=== PATIENT | female | born 1940 | race Caucasian/White ===

== ENCOUNTER → 2016-11-13 | Outpatient (CLI) | payer OTHER, MEDICARE | LOC: FIMAGING 13:30 | PROVIDERS: ATTEND Internal Medicine | DX: Z47.89 Encounter for other orthopedic aftercare (principal); Z98.1 Arthrodesis status; M43.17 Spondylolisthesis, lumbosacral region; M51.36 Other intervertebral disc degeneration, lumbar region ==

== ENCOUNTER 2016-12-09 11:55 | Day surgery (SDC) | payer OTHER, MEDICARE ==
[2016-12-09] MEDS ORDERED: fentaNYL 100 MCG/2 ML INJ ONE (13:20)
[2016-12-09] MEDS ORDERED: MIDAZOLAM 2 MG/2 ML VIAL ONE (13:21)
[2016-12-09] MEDS ORDERED: BUPIVACAINE 0.5% 30 ML SDV ONE (14:37)
[2016-12-09] MEDS ORDERED: DEPO METHYLPREDNISOLONE 80 MG/ML SDV ONE (14:37)
[2016-12-09] MEDS ORDERED: IOPAMIDOL (ISOVUE-M 300) 15 ML VIAL ONE (14:37)
== END 2016-12-09 15:32 | disposition home health service (06) ==
LOC: FIMAGING 11:55
PROVIDERS: ATTEND Physician Assistant
PROC: 3E0S3BZ Introduction of Anesthetic Agent into Epidural Space, Percutaneous Approach (ICD-10-PCS; principal; 2016-12-09 14:42)
PROC: 3E0S33Z Introduction of Anti-inflammatory into Epidural Space, Percutaneous Approach (ICD-10-PCS; principal; 2016-12-09 14:42)
DX: M54.5 Low back pain (principal); M12.88 Other specific arthropathies, not elsewhere classified, other specified site
CPT/HCPCS: J1040; J2250; J3010; Q9967

== ENCOUNTER 2017-02-27 14:35 | Emergency (ER) | payer OTHER, MEDICARE ==
[2017-02-27 14:59] VITALS: BP 156/82; PULSE 90; RESP 16; TEMP 98.4; O2SAT 95
== END 2017-02-27 15:53 | disposition left against medical advice (07) ==
DX: Z53.21 Procedure and treatment not carried out due to patient leaving prior to being seen by health care provider (principal)

== ENCOUNTER → 2017-03-03 | Outpatient (CLI) | payer OTHER, MEDICARE | LOC: BMCIMAGING 14:52 | PROVIDERS: ATTEND Physical Medicine & Rehabilitation | DX: Z13.820 Encounter for screening for osteoporosis (principal); M85.80 Other specified disorders of bone density and structure, unspecified site; Z87.81 Personal history of (healed) traumatic fracture ==

== ENCOUNTER 2017-04-08 10:50 | Observation (INO) | payer OTHER, MEDICARE ==
--- NOTE | 2017-04-08 11:39 | CPEKG ---
Heart Rate: 101 RR Interval: 594 P-R Interval: 144 QRSD Interval: 126 QT Interval: 392 QTC Interval: 509 P [place]: 73 QRS [place]: -50 T Wave [place]: 110 EKG Severity - ABNORMAL ECG - EKG Impression: SINUS TACHYCARDIA EKG Impression: RIGHT ATRIAL ABNORMALITY EKG Impression: LEFT BUNDLE BRANCH BLOCK Electronically Signed By: Rivas Morton 08-Apr-2017 15:54:19
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
[2017-04-08] MEDS ORDERED: NS 1,000 ML IV ONE (12:08)
[2017-04-08] MEDS ORDERED: ONDANSETRON 4 MG/2 ML VIAL IVP ONE (12:08)
[2017-04-08 12:23] LABS: OCCULT BLOOD FECES NEGATIVE (NEGATIVE)
[2017-04-08 12:27] LABS: COLOR YELLOW; LEUKOCYTE ESTERASE,URINE NEGATIVE (NEGATIVE); NITRITE,URINE NEGATIVE (NEGATIVE)
[2017-04-08 12:38] LABS: MUCUS 3+ /lpf (NONE-1+); RBC,URINE NONE SEEN /hpf (0-3)
[2017-04-08 12:46] LABS: % IMMATURE GRANULYOCYTES 0.4 % (0.0-1.1); ABSOLUTE IMMATURE GRANULOCYTES 0.05 10^3/uL (0.00-0.10); ADD DIFF? NO; ADD MORPH? NO; ADD SCAN? NO; ATYPICAL LYMPHOCYTE FLAG 10 (0-99); FRAGMENT RBC FLAG 0 (0-99); LEFT SHIFT FLG 0 (0-99); LIPEMIA HEMOLYSIS FLAG 80 (0-99); MEAN CELL HEMOGLOBIN 31.6 pg (27.9-34.1); MEAN CELL HEMOGLOBIN CONCENTR. 33.3 g/dL (32.4-36.7); MEAN CELL VOLUME 94.7 fL (81.5-99.8); MEAN PLATELET VOLUME 9.4 fL (8.7-11.7); PLATELET CLUMPS FLAG 20 (0-99); PLATELET COUNT 371 10^3/uL (150-400); RED BLOOD CELL COUNT 4.75 10^6/uL (4.18-5.33); RED CELL DISTRIBUTION WIDTH 12.6 % (11.5-15.2)
[2017-04-08 12:46] LABS: ALANINE AMINOTRANSFERASE 71 IU/L (9-52); ALBUMIN 4.5 g/dL (3.5-5.0); ALKALINE PHOSPHATASE 81 IU/L (38-126); ANION GAP 15 mEq/L (8-16); ASPARTATE AMINOTRANSFERASE 41 IU/L (14-46); BILIRUBIN-CONJUGATED 0.3 mg/dL (0.0-0.5); BILIRUBIN-UNCONJUGATED 0.7 mg/dL (0.0-1.1); CALCIUM 10.3 mg/dL (8.5-10.4); CARBON DIOXIDE 22 mEq/l (22-31); CHLORIDE 106 mEq/L (97-110); ETHANOL SERUM < 10 mg/dL (0-10); GLOMERULAR FILTRATION RATE 54; GLUCOSE 93 mg/dL (70-100); POTASSIUM 4.3 mEq/L (3.5-5.2); SODIUM 143 mEq/L (134-144)
[2017-04-08 12:55] LABS: TROPONIN I < 0.012 ng/mL (0.000-0.034)
[2017-04-08] MEDS ORDERED: CEPHALEXIN 500 MG CAP PO ONE (13:34)
[2017-04-08 14:09] VITALS: RESP 16
[2017-04-08] MEDS ORDERED: ZOLPIDEM TARTRATE 5 MG TAB PO PRN (14:35)
[2017-04-08] MEDS ORDERED: ONDANSETRON 4 MG/2 ML VIAL IVP PRN (15:42)
[2017-04-08] MEDS ORDERED: ONDANSETRON DISINTEGRATING 4 MG TAB PO PRN (15:42)
[2017-04-08] MEDS ORDERED: PROMETHAZINE HCL 25 MG/ML INJ IVP PRN (15:42)
[2017-04-08] MEDS ORDERED: NS 1,000 ML IV SCH (15:45)
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
[2017-04-08] MEDS: HYDROCODONE/APAP 10/325 TAB PO PRN (16:25)
[2017-04-08] MEDS ORDERED: GABAPENTIN 300 MG CAP PO SCH (21:00)
[2017-04-08] MEDS: oxyCODONE IR 5 MG TAB PO PRN (21:24)
[2017-04-08] MEDS: ACETAMINOPHEN 325 MG TAB PO PRN (22:49)
[2017-04-09 05:40] LABS: % IMMATURE GRANULYOCYTES 0.3 % (0.0-1.1); ABSOLUTE IMMATURE GRANULOCYTES 0.03 10^3/uL (0.00-0.10); ADD DIFF? NO; ADD MORPH? NO; ADD SCAN? NO; ATYPICAL LYMPHOCYTE FLAG 10 (0-99); FRAGMENT RBC FLAG 0 (0-99); HEMOGLOBIN 12.1 g/dL (12.6-16.3); LEFT SHIFT FLG 0 (0-99); LIPEMIA HEMOLYSIS FLAG 80 (0-99); MEAN CELL HEMOGLOBIN 31.7 pg (27.9-34.1); MEAN CELL HEMOGLOBIN CONCENTR. 32.7 g/dL (32.4-36.7); MEAN CELL VOLUME 96.9 fL (81.5-99.8); MEAN PLATELET VOLUME 9.6 fL (8.7-11.7); PLATELET CLUMPS FLAG 0 (0-99); PLATELET COUNT 326 10^3/uL (150-400); RED BLOOD CELL COUNT 3.82 10^6/uL (4.18-5.33); RED CELL DISTRIBUTION WIDTH 12.9 % (11.5-15.2)
[2017-04-09 05:52] LABS: ANION GAP 4 mEq/L (8-16); CALCIUM 9.3 mg/dL (8.5-10.4); CARBON DIOXIDE 24 mEq/l (22-31); CHLORIDE 110 mEq/L (97-110); GLOMERULAR FILTRATION RATE 54; GLUCOSE 79 mg/dL (70-100); POTASSIUM 4.3 mEq/L (3.5-5.2); SODIUM 138 mEq/L (134-144)
[2017-04-09 07:30] VITALS: BP 138/74; PULSE 67; TEMP 98.4; O2SAT 94
[2017-04-09] MEDS: HYDROCODONE/APAP 10/325 TAB PO PRN ×2 (07:38→13:39)
[2017-04-09] MEDS: oxyCODONE IR 5 MG TAB PO PRN ×2 (08:20→13:12)
[2017-04-09] MEDS ORDERED: ENOXAPARIN 40 MG/0.4 ML SYR SC SCH (09:00)
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
[2017-04-09] MEDS: ACETAMINOPHEN 325 MG TAB PO PRN (11:37)
--- NOTE | 2017-04-09 12:56 | ASMTCMCOM ---
CM Note CM Note Notes: Pt. is a 76-year-old woman admitted for ongoing diarrhea. PT recommending HC. [facility] able to take Pt. Will visit tomorrow per Chelsea at [facility] - PT only service. SWer provided counseling support to Pt. today. Please contact Mel Ann LCSW should Pt. readmit or come to ED - or [phone]. Date Signed: 04/09/2017 12:56 PM Electronically Signed By:Mel Ann LCSW
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
--- NOTE | 2017-04-09 17:42 | ASDISCHSUM ---
Discharge Information Plan Status:Home with No Needs Medically Cleared to Leave: Discharge Date:04/09/2017 01:50 PM CM D/C Disposition:Home, Routine, Self-Care ADT D/C Disposition:Home, Routine, Self-Care Projected Discharge Date:04/09/2017 01:00 PM Transportation at D/C:Family Discharge Delay Reason: Follow-Up Date:04/09/2017 01:00 PM Discharge Slot: Final Diagnosis: Placement Information Referral Type:*Home Health Care Services Referral ID:[id number] Provider Name:[facility] Address [address] [place] [address] Address 2: City:[place] Selection Factors: State:[place] Patient Contact Information Contact Name:LEONID Relationship: Address:[address] City:[place] Alternate Phone: State/Zip Code:[place] [address] Email: Financial Information Financial Class: Primary Plan Desc:MEDICARE INPATIENT Primary Plan Number:[id number] Secondary Plan Desc:[employer]/MDR SUPPLEMENT Secondary Plan Number:[id number] Assessment Information [facility] CM Progress Note CM Note CM Note Notes: Pt. is a 76-year-old woman admitted for ongoing diarrhea. PT recommending HC. [facility] able to take Pt. Will visit tomorrow rosario Tran at [facility] - PT only service. Lisa provided counseling support to Pt. today. Please contact Mel Ann LCSW should Pt. readmit or come to ED - or [phone]. Date Signed: 04/09/2017 12:56 PM Electronically Signed By:Mel Ann LCSW Intervention Information
== END 2017-04-09 13:50 | disposition home or self-care (01) ==
LOC: EDUNIT# → INTOOBSV 13:34 → F3E 14:25
PROVIDERS: ADMIT Internal Medicine; ATTEND Internal Medicine
DX: R19.7 Diarrhea, unspecified (principal); F32.9 Major depressive disorder, single episode, unspecified; Z63.0 Problems in relationship with spouse or partner
CPT/HCPCS: 71010; 93005; 97116; 97162; 97165; G0378; G8978; G8979; G8987; G8988; G8989; 80305; 96374; G0480; J1650; J2405

== ENCOUNTER 2017-05-24 21:23 | Observation (INO) | payer OTHER, MEDICARE ==
--- NOTE | 2017-05-24 21:39 | EDPHY ---
H & P Stated Complaint: Mechanical Fall HPI/ROS: HPI CHIEF COMPLAINT: Found on floor. Confusion HISTORY OF PRESENT ILLNESS: This patient is a 76-year-old female, she presents emergency room by EMS reports that she was found by her on a carpeted ground unknown down time. She appears confused. She has a history of this. She presents emergency room stating that she feels fine however she appears confused on exam. She states she is here for surgical procedure. She denies any pain anywhere. She states she does not know what happened to her. Past Medical History: Alcoholism, diarrhea, pyuria depression, depression with psychotic features, dementia, history of alcohol abuse Past Surgical History: No recent surgery. Social History: Denies daily use drugs alcohol tobacco products. Family History: Noncontributory ROS REVIEW OF SYSTEMS: A comprehensive 10 point review of systems is otherwise negative aside from elements mentioned in the history of present illness. Exam Constitutional appears nontoxic, confused, triage nursing summary reviewed, vital signs reviewed, awake/alert. Eyes normal conjunctivae and sclera, EOMI, PERRLA. HENT no evidence of head trauma. normal inspection, atraumatic, moist mucus membranes, no epistaxis, neck supple/ no meningismus, no raccoon eyes. Respiratory clear to auscultation bilaterally, normal breath sounds, no respiratory distress, no wheezing. Cardiovascular rate normal, regular rhythm, no murmur, no edema, distal pulses normal. Gastrointestinal soft, non-tender, no rebound, no guarding, normal bowel sounds, no distension, no pulsatile mass. Genitourinary no CVA tenderness. Musculoskeletal no midline vertebral tenderness, full range of motion, no calf swelling, no tenderness of extremities, no meningismus, good pulses, neurovascularly intact. Skin pink, warm, & dry, no rash, skin atraumatic. Neurologic awake, alert and oriented x 2, AAOx2, moves all 4 extremities equally, motor intact, sensory intact, CN II-XII intact, normal cerebellar, normal vision, normal speech. Psychiatric normal mood/affect. Heme/Lymph/Immune no lymphadenopathy. Differential Diagnosis: Includes but is not limited to in a particular order acute mental status change, electrolyte disturbance, dehydration, infection, UTI , intracranial bleed Medical Decision Making: Plan for this patient IV establishment blood draw, gentle IV hydration, check UA, CT head without contrast for confusion, EKG. Re-evaluation: EKG interpretation by me on record in [facility] system. Impression time of EKG 2221: Sinus rhythm rate of 77. Left bundle-branch block present. No acute ischemia. When compared to old EKG dated 04/08/[address] head without contrast: Reason for CT head without contrast confusion. Rule out bleed. CT head without contrast called to me by Dr. Matt Resendiz. Negative for anything acute. 2241: Is unclear exactly what is causing this patient's altered mental status at this time. She does appear confused. It is possible drug intoxication that she is not admitting to additionally alcohol abuse that she is not admitting to as she has been denying alcohol in the past but found out to be untrue. Additionally it could be delirium from underlying mental illness or dementia. Her workup here in the emergency room is pretty much unremarkable. She does not have intracranial bleed she does not appear infected. Electrolytes are appropriate. Blood work reassuring vital signs stable. However given how confused she is should be admitted to the hospital service for further evaluation. Most likely delirium. She is nontoxic appearing I do not feel that she needs a lumbar puncture. Source: Patient - Personal History Current Tetanus/Diphtheria Vaccine: Yes Tetanus Vaccine Date: 2010 - Medical/Surgical History Hx Asthma: No Hx Chronic Respiratory Disease: No Hx Diabetes: No Hx Cardiac Disease: No Hx Renal Disease: No Hx Cirrhosis: No Hx Alcoholism: Yes Hx HIV/AIDS: No Hx Splenectomy or Spleen Trauma: No Other PMH: gb removed, knee surgery, spinal fusion. ongoing back pain and chronic pain. etoh abuse. multiple admissions for delusions and confusion - Social History Smoking Status: Never smoked Constitutional: Initial Vital Signs Temperature (C) 36.8 C 05/24/17 21:35 Heart Rate 81 05/24/17 21:35 Respiratory Rate 16 05/24/17 21:35 Blood Pressure 156/87 H 05/24/17 21:35 O2 Sat (%) 92 05/24/17 21:35 O2 Delivery Mode Room Air Allergies/Adverse Reactions: promethazine Allergy (Unknown, Unverified 05/24/17 23:11) Home Medications: Medication Instructions Recorded HYDROcodone/APAP 10325 [[place] 1 each PO Q6HRS PRN 04/08/17 10325 (*)] Gabapentin [Neurontin 300 MG (*)] 600 mg PO HS #0 05/25/17 Medical Decision Making - Data Points Laboratory Results: Laboratory Results 05/24/17 21:00 05/24/17 21:00 Medications Given: Discontinued Medications Hydrocodone Bitart/Acetaminophen ([place] 10/325) 1 tab PO Q6HRS PRN PRN Reason: Pain, Severe Able to Take PO Stop: 06/04/17 05:35 Last Admin: 05/25/17 11:30 Dose: 1 tab Sodium Chloride (Ns) 1,000 mls @ 0 mls/hr IV EDNOW ONE; Wide Open PRN Reason: Protocol Stop: 05/24/17 21:43 Last Admin: 05/24/17 23:10 Dose: 1,000 mls Ondansetron HCl (Zofran) 4 mg IVP Q4HRS PRN PRN Reason: Nausea/Vomiting, Can't Take PO Stop: 11/21/17 05:33 Last Admin: 05/25/17 09:05 Dose: 4 mg Departure - Departure Disposition: [facility] Inpatient Acute Clinical Impression: Altered mental status Qualifiers: Altered mental status type: unspecified Qualified Code(s): R41.82 - Altered mental status, unspecified Condition: Fair
[2017-05-24] MEDS ORDERED: NS 1,000 ML IV ONE (21:42)
[2017-05-24 21:48] LABS: % IMMATURE GRANULYOCYTES 0.6 % (0.0-1.1); ABSOLUTE IMMATURE GRANULOCYTES 0.05 10^3/uL (0.00-0.10); ADD DIFF? NO; ADD MORPH? NO; ADD SCAN? NO; ATYPICAL LYMPHOCYTE FLAG 0 (0-99); FRAGMENT RBC FLAG 0 (0-99); HEMATOCRIT 46.3 % (38.0-47.0); HEMOGLOBIN 15.5 g/dL (12.6-16.3); LEFT SHIFT FLG 0 (0-99); LIPEMIA HEMOLYSIS FLAG 80 (0-99); MEAN CELL HEMOGLOBIN 31.9 pg (27.9-34.1); MEAN CELL HEMOGLOBIN CONCENTR. 33.5 g/dL (32.4-36.7); MEAN CELL VOLUME 95.3 fL (81.5-99.8); MEAN PLATELET VOLUME 9.4 fL (8.7-11.7); PLATELET CLUMPS FLAG 0 (0-99); PLATELET COUNT 351 10^3/uL (150-400); RED BLOOD CELL COUNT 4.86 10^6/uL (4.18-5.33); RED CELL DISTRIBUTION WIDTH 13.1 % (11.5-15.2)
[2017-05-24 21:59] LABS: COLOR YELLOW; LEUKOCYTE ESTERASE,URINE NEGATIVE (NEGATIVE); NITRITE,URINE NEGATIVE (NEGATIVE)
[2017-05-24 22:00] LABS: INR 0.96 (0.83-1.16); PROTIME(PATIENT) 12.7 SEC (12.0-15.0)
[2017-05-24 22:01] LABS: APTT 27.6 SEC (23.0-38.0)
[2017-05-24 22:20] LABS: ALANINE AMINOTRANSFERASE 64 IU/L (9-52); ALKALINE PHOSPHATASE 83 IU/L (38-126); ANION GAP 14 mEq/L (8-16); ASPARTATE AMINOTRANSFERASE 43 IU/L (14-46); BILIRUBIN,TOTAL 0.5 mg/dL (0.1-1.4); BILIRUBIN-CONJUGATED 0.1 mg/dL (0.0-0.5); BILIRUBIN-UNCONJUGATED 0.4 mg/dL (0.0-1.1); CALCIUM 10.2 mg/dL (8.5-10.4); CARBON DIOXIDE 26 mEq/l (22-31); CHLORIDE 101 mEq/L (97-110); GLOMERULAR FILTRATION RATE 54; GLUCOSE 89 mg/dL (70-100); POTASSIUM 4.6 mEq/L (3.5-5.2); SODIUM 141 mEq/L (134-144); TOTAL PROTEIN 7.5 g/dL (6.3-8.2)
--- NOTE | 2017-05-24 22:23 | CPEKG ---
Heart Rate: 77 RR Interval: 779 P-R Interval: 156 QRSD Interval: 130 QT Interval: 444 QTC Interval: 503 P [place]: 65 QRS [place]: -44 T Wave [place]: 107 EKG Severity - ABNORMAL ECG - EKG Impression: SINUS RHYTHM EKG Impression: LEFT BUNDLE BRANCH BLOCK Electronically Signed By: Krishna Oconnell 24-May-2017 22:49:20
[2017-05-24 22:31] LABS: TROPONIN I < 0.012 ng/mL (0.000-0.034)
[2017-05-24 22:43] LABS: ETHANOL SERUM < 10 mg/dL (0-10)
[2017-05-25 03:45] VITALS: RESP 18
[2017-05-25] MEDS ORDERED: ONDANSETRON 4 MG/2 ML VIAL IVP PRN (05:34)
[2017-05-25] MEDS: HYDROCODONE/APAP 10/325 TAB PO PRN ×2 (05:45→11:30)
--- NOTE | 2017-05-25 07:40 | GHP ---
[f rep st] HISTORY AND PHYSICAL DATE OF ADMISSION: 05/24/2017 SOURCE: Patient able to provide history at this time. She is unclear on a few details, but overall at this time is oriented x3. Case discussed with ED provider, and EMR was reviewed. CHIEF COMPLAINT: Confusion, fall. HISTORY OF PRESENT ILLNESS: This is a 76-year-old female with past medical history significant for chronic pain, previous history listed in the EMR of alcoholism, depression with history of psychotic features, dementia, chronic back pain on chronic narcotic therapy, with multiple ER visits and hospital admissions for altered mental status, delirium, and UTI. is not present at bedside, but apparently he arrived home and found the patient lying on the floor and appeared confused. Patient states that she fell 7 or 8 steps down a flight of stairs. She denies any loss of consciousness. No headache. No changes in vision. No lightheadedness prior to this event, but is complaining of lightheadedness now secondary to increasing pain. Patient reports that she has not taken her [place] since earlier this afternoon, and she is reporting worsening pain. Additionally, patient states that she is experiencing a slightly different pain from her usual lumbosacral chronic pain. Patient thinks that she is having some pain in the upper lumbar, lower thoracic region. She reports that she was able to ambulate assisted to the bathroom without any radicular symptoms. No numbness or tingling. Patient denies any history of urinary or bladder incontinence or retention. Patient denies any recent illnesses. She states that she was carrying something down the stairs. When she tried to throw the item, she lost her footing and slipped down. In the emergency department, patient was reporting that she felt fine. However , she was noted to be confused. REVIEW OF SYSTEMS: GENERAL: Negative except as noted above. ALLERGIES: Phenergan. HOME MEDICATIONS: 1. Gabapentin 800 mg p.o. at h.s. 2. [place] 10/325 one tab p.o. q.6 hours. Patient reports she takes this scheduled. 3. Ambien listed in EMR. Patient reports that she no longer takes this medication. PAST MEDICAL HISTORY: Significant for a history of alcohol dependence, depression with history of psychotic features, dementia, UTI, chronic back pain , multiple hospitalizations and ER visits for altered mental status for reasons as noted above, diverticulitis/diverticulosis, history of lumbar compression fracture. PAST SURGICAL HISTORY: Significant for cholecystectomy, knee surgery, spine, and breast augmentation. FAMILY HISTORY: Per EMR, both parents with history of alcoholism. Patient declined to answer as she mentioned family members have passed on but denied any other medical issues. SOCIAL HISTORY: Patient denies any current tobacco, drugs, or alcohol. She is and lives with her . CODE STATUS: Will need to be further discussed, will leave as full code at this time, once patient's can arrive to bedside. PHYSICAL EXAMINATION: VITAL SIGNS: Upon arrival to the ER, blood pressure 156/ 87, heart rate 81, respiratory rate 16, O2 saturation 92% on room air, with a temperature of 36.8. Currently available: Blood pressure 161/86, heart rate 84 , respiratory rate 18, O2 saturation 95% on room air, with temperature of 36.9. GENERAL: No acute distress. Patient lies quietly in bed. She does not appear uncomfortable, but as soon as I enter the room, she is quite frustrated and displeased, complaining of her significant back pain. HEAD: Normocephalic , atraumatic. EYES: Extraocular muscles grossly intact. No scleral icterus or conjunctival injection. Lens reflex appreciated bilaterally. ENT: Mucous membranes appear moist. No oropharyngeal erythema. No nasal discharge. NECK: Supple. Trachea midline. CV: Regular rate and rhythm. No murmurs, rubs, or gallops appreciated. RESPIRATORY: Lungs are clear to auscultation bilaterally. No wheezes, rales, or rhonchi. ABDOMEN: Positive bowel sounds. Soft. Nontender to palpation. No rebound, guarding, or masses appreciated. : No suprapubic tenderness to palpation. No Hernandez in place. EXTREMITIES: Patient able to move. Generalized weakness. Strength 4/5 in upper and lower extremities. Patient does require some assistance sitting up secondary to complaints of significant back pain and has decreased range of motion. NEURO: Cranial nerves 2-12 grossly nonfocal. No facial drooping. Moves all extremities. Sensation intact. Patient is oriented x3 at this time. PSYCH: Patient is a little bit frustrated and agitated. She is demanding her [place]. Nursing staff reported at several points during her stay on the floor, she became increasingly demanding despite being advised that she is here for confusion, and we require her to have some time to clear out her home medications. I reviewed this with the patient again at bedside. Within 2 minutes of my leaving the room, she was paging the nurses, demanding her [place]. LABORATORY STUDIES: WBC 7.75, H and H 15.5 and 46.3, MCV of 95.3, platelet count is 351. PT is 12.7, INR 0.96, PTT is 27.6. Sodium is 141, potassium is 4.6, chloride 101, CO2 is 26, anion gap 14, BUN 17, creatinine 1.0, GFR 54. Appears baseline. Glucose 89, calcium 10.2, total bili 0.5, ALT is 64, AST is 43, alkaline phosphatase 83. CK is 75. Troponin is negative. Total protein 7.5, albumin 5.0, lipase 89. UA is hazy, yellow, with pH of 5.0, specific gravity 1.012, and is otherwise negative. Patient's U-tox is positive for opiates. Negative alcohol. Chest x-ray: Image report reviewed. Negative for any acute findings. CT head: Preliminary report reviewed, discussed with ED provider. It was negative. EKG reviewed myself, showing sinus rhythm, left bundle branch block. QT is 444. Compared to previous EKG from 04/08/2017, stable left bundle branch block. ASSESSMENT AND PLAN: This is a 76-year-old female with history of chronic pain , chronic narcotic use, multiple hospital and emergency room visits for altered mental status, with history of dementia, depression with a history of psychotic features, and recurrent urinary tract infection who presents with confusion and patient reporting a fall. 1. Altered mental status, likely related to patient's chronic narcotic use. She is on high dose of [place], which she reports she takes scheduled. She also is on 1800 mg of gabapentin. Patient states that she has been without her narcotics since this afternoon. At this time, she appears to be oriented. There is no family at bedside to comment on any abnormalities. I advised patient we will slowly reintroduce her home medications. Will start with 1 tab of her [place]. Will also obtain thoracic and lumbar spine imaging with her complaints of new back pain in her middle back. She reports her chronic pain is located in her lumbar spine. She denies any hip pain, knee pain that is beyond her usual baseline. She denies any urinary or fecal incontinence or retention. No motor or sensory deficits. Occupational Therapy has been consulted for evaluation. 2. chronic narcotic use - as above. 3. hx of dementia - at this time patient is oriented. 4. hx of major depression - no evidence of psychotic features at this time. 5 hx of alcohol dependence - current alcohol level is zero. patient with previous history of reporting remote use but finding + etoh levels. I do not suspect this is the case currently but will monitor for withdrawal symptoms. 6. Fluid, electrolyte, nutrition. Diet as tolerated. 7. Prophylaxis. Sequential compression devices. Anticipate short hospital stay so no anticoagulation at this time. 8. Code status will be full and further discussed again when patient's can be at bedside and also to verify patient's baseline mentation. 9. Disposition. Patient has been admitted to observation on the medical floor. Case Management will also be consulted to assess for any additional needs patient may require at home. /[id number]/MODL MTDD
[2017-05-25 08:45] LABS: % IMMATURE GRANULYOCYTES 0.2 % (0.0-1.1); ABSOLUTE IMMATURE GRANULOCYTES 0.02 10^3/uL (0.00-0.10); ADD DIFF? NO; ADD MORPH? NO; ADD SCAN? NO; ATYPICAL LYMPHOCYTE FLAG 0 (0-99); FRAGMENT RBC FLAG 0 (0-99); HEMATOCRIT 39.4 % (38.0-47.0); HEMOGLOBIN 13.7 g/dL (12.6-16.3); LEFT SHIFT FLG 0 (0-99); LIPEMIA HEMOLYSIS FLAG 90 (0-99); MEAN CELL HEMOGLOBIN 32.5 pg (27.9-34.1); MEAN CELL HEMOGLOBIN CONCENTR. 34.8 g/dL (32.4-36.7); MEAN CELL VOLUME 93.4 fL (81.5-99.8); MEAN PLATELET VOLUME 9.3 fL (8.7-11.7); PLATELET CLUMPS FLAG 0 (0-99); PLATELET COUNT 320 10^3/uL (150-400); RED BLOOD CELL COUNT 4.22 10^6/uL (4.18-5.33)
[2017-05-25 09:00] LABS: ANION GAP 9 mEq/L (8-16); CALCIUM 9.4 mg/dL (8.5-10.4); CARBON DIOXIDE 25 mEq/l (22-31); CHLORIDE 109 mEq/L (97-110); CREATININE 0.7 mg/dL (0.6-1.0); GLOMERULAR FILTRATION RATE > 60; GLUCOSE 93 mg/dL (70-100); POTASSIUM 4.2 mEq/L (3.5-5.2); SODIUM 143 mEq/L (134-144)
--- NOTE | 2017-05-25 10:53 | ASMTCASEMG ---
Living Arrangements What is your living Answers: With Spouse arrangement? Who do you live with? Type Of Residence What kind of residence do Answers: House you live in? Discharge Plan Comments Coordination Status Comments Notes: Pt is a 76 y/o female admitted after a fall and altered mental status. OT and HAND FABRIC CUTTER have been ordered. Anticipates that pt will discharge independent without any needs when medically ready. CM available for d/c needs. Date Signed: 05/25/2017 10:53 AM Electronically Signed By:MARQUIS Steele
[2017-05-25 11:03] VITALS: BP 150/87; PULSE 81; TEMP 98.1; O2SAT 97
--- NOTE | 2017-05-25 15:11 | ASDISCHSUM ---
Discharge Information Plan Status:Home with No Needs Medically Cleared to Leave:05/24/2017 Discharge Date:05/25/2017 02:34 PM CM D/C Disposition: ADT D/C Disposition:Home, Routine, Self-Care Projected Discharge Date:05/25/2017 12:00 AM Transportation at D/C: Discharge Delay Reason: Follow-Up Date:05/25/2017 12:00 AM Discharge Slot: Final Diagnosis: Placement Information Patient Contact Information Contact Name:LEONID Relationship: Address:[address] [place] City:[place] Alternate Phone: State/Zip Code:[place] [address] Email: Financial Information Financial Class: Primary Plan Desc:MEDICARE OUTPATIENT Primary Plan Number:[id number] Secondary Plan Desc:[employer]/MDR SUPPLEMENT Secondary Plan Number:[id number] Assessment Information [facility] Initial CM Assessment Living Arrangements What is your living Answers: With Spouse arrangement? Who do you live with? Type Of Residence What kind of residence do Answers: House you live in? Discharge Plan Comments Coordination Status Comments Notes: Pt is a 76 y/o female admitted after a fall and altered mental status. OT and SAUSAGE WRAPPER have been ordered. Anticipates that pt will discharge independent without any needs when medically ready. CM available for d/c needs. Date Signed: 05/25/2017 10:53 AM Electronically Signed By:MARQUIS Steele Intervention Information Intervention Type:*VITA-Signed Date of Service:05/25/2017 09:26 AM Patient Type:Observation Staff Member:MAGUE Santiago [place] Hours: Discipline: Severity: Comment:
--- NOTE | 2017-05-25 19:57 | GDS ---
[f rep st] DISCHARGE SUMMARY DISCHARGE DIAGNOSES: 1. Acute encephalopathy thought secondary to polypharmacy. 2. Back pain, chronic. 3. History of chronic narcotic dependence. 4. Depression. 5. History of cognitive dysfunction. HISTORY OF PRESENT ILLNESS: This is a 76-year-old female with a history of chronic pain and continuo us narcotic use who presents with a fall and increasing back pain. For details of the patient's init ial presentation, please see the history and physical dated 05/24/2017. CONSULTATIVE SERVICES: None. PROCEDURES: 1. On 05/25/2017, the patient had lumbar and thoracic spine x-rays both of which showed no acute oss eous findings. 2. On 05/24/2017, the patient had a noncontrast CT of the head that showed diffuse cortical atrophy. No acute bleeds or strokes. HOSPITAL COURSE: By issue. 1. Acute encephalopathy. The patient presented altered, thought likely secondary to polysubstance u se/abuse. Drug screen confirmed opiates in her system. The patient was admitted with home pain medi cations held. She did clear through the course of the morning. We have made strong recommendations that she avoid the use of narcotics, high-dose gabapentin and Ambien in the future. We have taken Am dixon off her list and reduced her gabapentin dose by a third. I asked her to review her pain protoco l with her outpatient prescribing provider. 2. Back pain, chronic. We did provide imaging to rule out any acute osseous abnormality related to her fall. Appears there are no compression fractures or bony abnormalities. Again, the patient is b eing referred to her outpatient provider for ongoing titration of her outpatient med regimen. MEDICATIONS AT THE TIME OF TRANSFER: Please reference med rec printed on 05/25/2017. FOLLOWUP APPOINTMENTS: With her PCP, Dr. Sera Pittman, in the next 1-2 weeks for ongoing medicati on titration/reevaluation. PENDING STUDIES: None. I spent greater than 30 minutes in the planning and coordination of this discharge. /[id number]/MODL
== END 2017-05-25 14:34 | disposition home or self-care (01) ==
LOC: EDUNIT# → F3E 23:28
PROVIDERS: ADMIT Family Medicine; ATTEND Family Medicine
DX: G93.40 Encephalopathy, unspecified (principal); M54.9 Dorsalgia, unspecified; F32.9 Major depressive disorder, single episode, unspecified
CPT/HCPCS: 70450; 71010; 72070; 72100; 92523; 93005; 97161; 97165; G8978; G8979; G8980; G8987; G8988; G8989; G9165; G9166; J2405; 80305; G0480

== ENCOUNTER 2017-06-25 04:54 | Inpatient (IN) | payer OTHER, MEDICARE ==
[2017-06-25] MEDS ORDERED: ceFAZolin 2 GM/SWFI 2 GM/20 ML SYR IVP ONE (05:18)
[2017-06-25] MEDS ORDERED: morphINE PF 5 MG/10 ML INJ IT ONE (05:18)
[2017-06-25] MEDS ORDERED: GABAPENTIN 300 MG CAP PO ONE (05:18)
[2017-06-25] MEDS ORDERED: ACETAMINOPHEN 500 MG TAB PO ONE (05:18)
[2017-06-25] MEDS ORDERED: LIDOCAINE 1% 2 ML INJ ID PRN (05:20)
[2017-06-25] MEDS ORDERED: LR 1,000 ML IV ONE (05:20)
[2017-06-25] MEDS ORDERED: SURGIFLO MATRIX KIT WITH THROMBIN 8ml TP ONE (06:46)
[2017-06-25] MEDS ORDERED: BUPIVACAINE 0.25% 30 ML SDV ONE (06:46)
[2017-06-25] MEDS ORDERED: THROMBIN (BOVINE) 20,000 UNIT VIAL TP ONE (06:46)
[2017-06-25] MEDS ORDERED: BACITRACIN 50,000 UNITS/10 ML SYR IRR ONE ×3 (06:47→09:08)
[2017-06-25] MEDS ORDERED: CITRATE DEXTROSE SOLN 500 ML BAG ONE (06:47)
--- NOTE | 2017-06-25 06:51 | PDHPUP ---
History & Physical Update H&P update statement: This history and physical update is based on an assessment of the patient which was completed after admission or registration (within 24 hours), but prior to the surgery/procedure. H&P update: H&P reviewed & patient examined, no change in patient's condition since H&P completed (Consents signed and site marked. All questions answered.)
--- NOTE | 2017-06-25 07:01 | PDANEPAE ---
ANE History of Present Illness hardware removal L4-5, TLIF ANE Past Medical History - Cardiovascular History Hx Hypertension: No Hx Arrhythmias: No Hx Chest Pain: No Hx Coronary Artery / Peripheral Vascular Disease: No Hx CHF / Valvular Disease: No Hx Palpitations: No Cardiovascular History Comment: Hx of LBBB - Pulmonary History Hx COPD: No Hx Asthma/Reactive Airway Disease: No Hx Recent Upper Respiratory Infection: No Hx Oxygen in Use at Home: No Hx Sleep Apnea: No Sleep Apnea Screening Result - Last Documented: Negative - Neurologic History Hx Cerebrovascular Accident: No Hx Seizures: No Hx Dementia: Yes - Endocrine History Hx Diabetes: No Hypothyroid: No Obesity: mild - Renal History Hx Renal Disorders: No - Liver History Hx Hepatic Disorders: Yes Hepatic History Comment: Fatty tissue on liver - Neurological & Psychiatric Hx Hx Neurological and Psychiatric Disorders: Yes Neurological / Psychiatric History Comment: Hx of depression, anxiety, confusion /delirium - Cancer History Hx Cancer: No - Congenital Disorder History Hx Congenital Disorders: No - GI History GERD: mild Hx Gastrointestinal Disorders: Yes Gastrointestinal History Comment: Indigestion sometimes - Other Health History Other Health History: denies - Chronic Pain History Chronic Pain: Yes (Back Pain) - Surgical History Prior Surgeries: Right knee replacement June 2016. Lumbar fusion ANE Review of Systems Review of Systems: - Exercise capacity METS (RN): 4 METS ANE Patient History - Allergies Allergies/Adverse Reactions: promethazine Allergy (Unknown, Verified 06/04/17 11:49) Anxiety - Home Medications Home Medications: HYDROcodone/APAP 10/325 [[place] 10/325 (*)] 1 each PO Q6HRS PRN 04/08/17 [Last Taken 06/25/17 02:00] Gabapentin [Neurontin] 1,800 mg PO HS 06/03/17 [Last Taken 06/24/17 23:00] Lansoprazole [Prevacid] 15 mg PO DAILY 06/04/17 [Last Taken 06/24/17 10:00] - NPO status NPO Since - Liquids (Date): 06/24/17 NPO Since - Liquids (Time): 21:00 NPO Since - Solids (Date): 06/24/17 NPO Since - Solids (Time): 13:00 - Anes Hx Anes Hx: no prior problems - Smoking Hx Smoking Status: Never smoked - Alcohol Use Alcohol Use: Other (Denies any alcohol intake now. Hx of heavy use in past) - Family Anes Hx Family Anes Hx: none Family Hx Anesthesia Complications: denies ANE Labs/Vital Signs - Vital Signs Blood Pressure: 109/62 Heart Rate: 74 Respiratory Rate: 16 O2 Sat (%): 96 Height: 152.4 cm Weight: 61.235 kg ANE Physical Exam - Airway Neck exam: FROM Mallampati Score: Class 1 Mouth exam: normal dental/mouth exam (upper front cap) - Pulmonary Pulmonary: clear to auscultation - Cardiovascular Cardiovascular: regular rate and rhythym - ASA Status ASA Status: III ANE Anesthesia Plan Anesthesia Plan: general endotracheal anesthesia (Risks discussed in detail, questions answered, consent signed.)
[2017-06-25] MEDS ORDERED: MIDAZOLAM 2 MG/2 ML VIAL IVP ONE (07:06)
[2017-06-25] MEDS ORDERED: MIDAZOLAM 2 MG/2 ML VIAL ONE (07:07)
[2017-06-25] MEDS ORDERED: PROPOFOL/EMULSION 500 MG/50 ML BOTTLE IV ONE (07:18)
[2017-06-25] MEDS ORDERED: fentaNYL 250 MCG/5 ML INJ ONE (07:19)
[2017-06-25] MEDS ORDERED: KETAMINE 100 MG/10 ML SYR ONE (07:21)
[2017-06-25] MEDS ORDERED: RANITIDINE 50 MG/2 ML VIAL ONE (08:26)
[2017-06-25] MEDS ORDERED: ROCURONIUM 50 MG/5 ML VIAL ONE (08:26)
[2017-06-25] MEDS ORDERED: DEXAMETHASONE 4 MG/ML VIAL ONE (08:26)
[2017-06-25] MEDS ORDERED: morphINE PF 5 MG/10 ML INJ ONE (09:34)
[2017-06-25] MEDS ORDERED: fentaNYL 100 MCG/2 ML INJ ONE ×2 (09:35→11:39)
[2017-06-25] MEDS ORDERED: ONDANSETRON 4 MG/2 ML VIAL ONE (10:14)
[2017-06-25] MEDS ORDERED: NALOXONE HCL 0.4 MG/ML INJ IVP PRN (10:24)
[2017-06-25] MEDS ORDERED: fentaNYL 100 MCG/2 ML INJ IVP PRN (10:24)
[2017-06-25] MEDS ORDERED: ONDANSETRON 4 MG/2 ML VIAL IVP PRN (10:49)
[2017-06-25] MEDS ORDERED: diphenhydrAMINE 25 MG CAP PO PRN (10:49)
[2017-06-25] MEDS ORDERED: POLYETHYLENE GLYCOL 3350 17 GM PKT PO PRN (10:49)
[2017-06-25] MEDS ORDERED: MAGNESIUM HYDROXIDE 30 ML UDCUP PO PRN (10:49)
[2017-06-25] MEDS ORDERED: BISACODYL 10 MG SUPP PR PRN (10:49)
[2017-06-25] MEDS ORDERED: LACTULOSE 20 GM/30 ML UDCUP PO PRN (10:49)
[2017-06-25] MEDS ORDERED: ONDANSETRON DISINTEGRATING 4 MG TAB PO PRN (10:49)
[2017-06-25] MEDS ORDERED: NALOXONE HCL 0.4 MG/ML INJ ONE (10:50)
[2017-06-25] MEDS ORDERED: NS W/ 20 KCl/L 1,000 ML IV SCH (11:00)
--- NOTE | 2017-06-25 11:00 | POSTOPPROG ---
Post Op Note Date of Operation: 06/25/17 Surgeon: Pattie Bruno Telephone Maintenance Mechanic: Daiana Bruno PA-C Anesthesiologist: [place] Anesthesia: GET(General Endotracheal) Pre-op Diagnosis: lumbar spondylolisthesis, stenosis Post-op Diagnosis: same Indication: nerve compression, pain Procedure: L4/5 hardware removal with L5-S1 lami/TLIF/PSF Findings: Please see dictation Inf/Abcess present in the surg proc area at time of surgery?: No Depth: Organ Space EBL: 50-100 Complications: none Drains: Darryl MCCORMICK Addendum - Addendum .: S: Pt in bed in PACU, c/o back pain O: Sleepy but awakens easily NAD VSS MAEx4 Motor 5/5 BUE/BLE with exception of L EHL 4+/5 +LT Incision dressed cdi JPx1 Barnett in A: 76 yo F s/p L4/5 hardware removal with L5-S1 lami/TLIF/PSF P: PT/OT Pain management Brace when OOB TEDs, SCDs, lovenox POD#1 Post op xrays pending DC barnett in AM Will likely need rehab post op D/w Dr Russ Call NS with any questions or concerns
--- NOTE | 2017-06-25 13:26 | POSTANESTH ---
Post Anesthetic Evaluation Cardiovascular Status: Normal, Stable Respiratory Status: Normal, Stable Level of Consciousness/Mental Status: Can Participate in Eval Pain Control: Adequate, Prn Tx Ordered Nausea/Vomiting Control: Adequate, Prn Tx Ordered Complications Possibly Related to Anesthesia: None Noted
[2017-06-25] MEDS: ACETAMINOPHEN 500 MG TAB PO SCH ×2 (13:34→21:35)
[2017-06-25] MEDS: oxyCODONE IR 5 MG TAB PO PRN ×3 (13:34→21:59)
[2017-06-25] MEDS: ceFAZolin 2 GM/DEXTROSE 100 ML IV SCH ×2 (13:35→13:45)
[2017-06-25] MEDS: ceFAZolin 2 GM/SWFI 2 GM/20 ML SYR IVP SCH ×2 (13:46→21:38)
--- NOTE | 2017-06-25 13:59 | GOP ---
[f rep st] OPERATIVE REPORT DATE OF OPERATION: 06/15/2017 SURGEON: Germán Russ MD [employer] SUPERVISOR: YVETTE Martinez. ANESTHESIA: General. PREOPERATIVE DIAGNOSIS: 1. L5-S1 grade 1 spondylolisthesis. Adjacent left breakdown and history of prior spinal fusion L4-L5. 2. Low back pain. 3. Lower extremity bilateral radiculopathy. 4. Treatment refractory to nonoperative intervention. POSTOPERATIVE DIAGNOSIS: 1. L5-S1 grade 1 spondylolisthesis. Adjacent level breakdown and history of prior spinal fusion L4-L5. 2. Low back pain. 3. Lower extremity bilateral radiculopathy. 4. Treatment refractory to nonoperative intervention. PROCEDURE PERFORMED: 1. Posterior arthrodesis with approach to L4, L5, and S1. 2. Exploration of prior lumbar fusion hardware at L4-L5 and subsequent removal from the TodoCast TV system. 3. Posterolateral fusion bilateral with pedicle screw placement into L5-S1 from the Syncano Solera 4.75 system. 4. Decompressive laminectomy with bilateral medial facetectomies and foraminotomies L5-S1. 5. Left-sided L5-S1 transforaminal lumbar interbody fusion with a 7 x 23 mm titanium PEEK Elevate cage filled with morselized autograft and allograft. 6. Posterolateral fusion on the right between L5-S1 with morselized autograft and allograft. 7. Use of intraoperative 3D Stealth navigation. 8. Use of intraoperative fluoroscopy, less than 1 hour physician time. 9. Use of neuromonitoring. 10. Use of the operating microscope. 11. Injection of preservative-free intrathecal narcotics. FINDINGS: per imaging SPECIMENS: None. ESTIMATED BLOOD LOSS: 100 mL. INDICATIONS: The patient is a 76-year-old woman who has undergone a prior lumbar fusion by Dr. Rylan Manzano several years ago. She did quite well for several years and presented with worsening back pain and lower extremity radiculopathy. She had evidence of grade 1 spondylolisthesis L5 and S1 with bilateral foraminal stenosis. After discussion of risks, benefits, and treatment alternatives and after failing nonoperative interventions, we decided to proceed forth with surgery as described above. DESCRIPTION OF PROCEDURE: Patient was brought to the operating theater and underwent general endotracheal anesthesia without complications. She had Venodyne, IRA hose, and appropriate lines placed by Anesthesia. She was flipped prone onto the Darryl table. All bony processes inspected and padded. The lower lumbar region previous incision was identified, prepped and draped in the usual sterile surgical fashion. A time-out was completed per protocol. The patient received antibiotics within 1 hour of incision. The incision was infiltrated with Marcaine with epinephrine and taken down with the scalpel blade. Using monopolar, the incision was then taken down in the midline to the lumbodorsal fascia until we identified the spinous process of L4 , L5, and S1. Deep retractors were placed to maintain our exposure. We continued with subperiosteal dissection out laterally to identify the hardware at L4 and L5. She was noted to have an extensive amount of bone around the hardware at these levels. We sequentially removed the cap screws, the bilateral L4 and L5 cap screws as well as the bilateral rods. We then explored this area and noted that she was solidly fused. We sequentially removed the bilateral pedicle screws from the L4 and L5 level from the NuRapid Mobile Lueders system. We replaced the bilateral L5 screws with 6.5 x 40 mm screw on the left at L5, and 6.5 x 45 mm screw on the right L5 from the Medtronic Solera 4.75 system. We attached the 3D Stealth navigation clamp to the spinous process of L5 and completed a 3D Stealth navigation spin. Using 3D Stealth navigation, we placed the airplane pilot photogrammetry holes for the bilateral pedicle screws into S1. Both holes were manually palpated with no evidence of any cortical breaches. We then tapped and placed 6.5 x 40 mm screw on the left at S1 and 6.5 x 35 mm screw on the right S1 from the Medtronic Solera 4.75 system. Another 3D Stealth navigation spin demonstrated good placement of the hardware. At this point, the microscope was brought into field to assist with microscopic dissection and to maintain illumination and magnification. Using a combination of the bur tip on the drill bit, Kerrison punches and Leksell rongeur, we completed a decompressive laminectomy with bilateral medial facetectomies, L5- S1. We resected the pars on the left side and completed a foraminotomy as well. We then completed a foraminotomy right side L5-S1 until the foramen felt open on manual palpation. We distracted the L5-S1 disk space and completed a left-sided L5-S1 diskectomy. We prepared the cartilaginous endplates and measured interbody space. We placed a 7 x 23 mm titanium PEEK elevate cage filled with morselized autograft and allograft anteriorly and toward the midline. We packed additional morcellized autograft into the disk space for the interbody fusion. We let down distraction, decorticated the bone on the right side between L5 and S1. We placed 2 lordotic rods into the heads of the screws between L5 and S1 and secured them down with cap screws which were then tightened per the cocoa milling machine operator's setting. The wound was irrigated copiously with bacitracin irrigation and the drain left in the subfascial space. We injected preservative-free intrathecal narcotics and closed the wound in multiple layers using Vicryl sutures for the deep layers and Dermabond for the skin. The patient's wounds were dressed sterilely. She was flipped supine onto the transfer cart. She was awakened, extubated, and taken to the recovery room in stable condition. There were no complications and no noted changes on neuromonitoring throughout the procedure. COMPLICATIONS: None. /[id number]/MODL MTDD
--- NOTE | 2017-06-25 14:45 | ASMTCMCOM ---
CM Note CM Note Notes: Telephone call from SANCHEZ Bonilla reporting pt requests SNF d/c and may be anxious about options since it is a holiday wknd; attempted to meet w pt who was soundly sleeping. Pt has Medicare requiring 3 mdnght stay. CM to follow. Date Signed: 06/25/2017 02:45 PM Electronically Signed By:YOHANNES Ramesh
[2017-06-25] MEDS: POLYETHYLENE GLYCOL 3350 17 GM PKT PO SCH ×2 (18:27→23:55)
[2017-06-25] MEDS ORDERED: GABAPENTIN 1800 MG PO SCH (21:00)
[2017-06-25] MEDS: GABAPENTIN 300 MG CAP PO SCH (21:34)
[2017-06-25] MEDS: FAMOTIDINE 20 MG TAB PO SCH (21:36)
[2017-06-25] MEDS: SENNOSIDES/DOCUSATE SODIUM TAB PO SCH (21:36)
[2017-06-25] MEDS: METHOCARBAMOL 750 MG TAB PO PRN (23:38)
[2017-06-26] MEDS: oxyCODONE IR 5 MG TAB PO PRN ×5 (02:01→22:22)
[2017-06-26] MEDS: HYDROmorphONE/DILAUDID 1 MG/ML INJ IVP PRN ×2 (03:50→20:08)
[2017-06-26] MEDS: METHOCARBAMOL 750 MG TAB PO PRN ×3 (06:30→16:58)
[2017-06-26] MEDS: ACETAMINOPHEN 500 MG TAB PO SCH ×3 (06:30→22:21)
--- NOTE | 2017-06-26 08:18 | NEUSURGPN ---
Assessment/Plan: 76 y F s/p L4/5 hardware removal and L5/S1 laminectomy and posterior fusion/ TLIF POD #1 - some leg pain overnight as expected with incisional pain - no new symptoms - continue with therapies today - continue with PERCY - high output - pain control with oral pain medications - L spine xrays - dc planning for tomorrow versus Wednesday, but patient wants to go to rehab/SNF - will ask CM to assist with target dc for Wednesday - SCDs/Teds/, Lovenox POD #1 - brace to be worn when out of bed or HOB > 30 degrees - barnett out Subjective: some leg cramping overnight; incisional back pain but no new complaints Objective: A&A X 3 face symmetric. speech fluent dressing C/D/I Moving all 4 extremities with excellent strength throughout - PERCY with serosanguinous drainage Urinary Catheter in Place: No Neurosurgery Physical Exam - Vitals, I&O, Labs I and O 06/25/17 06/26/17 06/27/17 05:59 05:59 05:59 Intake Total 2030 350 Output Total 1380 Balance 650 350 Weight 61.235 kg Intake: Oral (ml) 1180 350 IV Intake (ml) 850 Output: Urine (ml) 1000 Catheter 1000 Estimated Blood Loss (ml) 100 PERCY Drain Output (ml) 280 #1 Posterior Back Darryl [address] Other: Intake Quantity Yes Sufficient Vital Signs Temp Pulse Resp BP Pulse Ox 36.7 C 64 16 98/45 L 97 06/26/17 08:00 06/26/17 08:00 06/26/17 08:00 06/26/17 08:00 06/26/17 08:00 ICD10 Worksheet Patient Problems: Problems Problem Status Onset Altered mental status Acute Anxiety Acute Depression Acute Diarrhea Acute Encephalopathy acute Acute Medication side effect Acute Psychosis Acute Urinary tract infection Acute
[2017-06-26] MEDS: ENOXAPARIN 40 MG/0.4 ML SYR SC SCH (08:27)
[2017-06-26] MEDS: SENNOSIDES/DOCUSATE SODIUM TAB PO SCH ×2 (08:27→20:08)
[2017-06-26] MEDS: FAMOTIDINE 20 MG TAB PO SCH ×2 (08:28→20:08)
[2017-06-26] MEDS: PANTOPRAZOLE SODIUM 40 MG TAB PO SCH (08:28)
[2017-06-26] MEDS: POLYETHYLENE GLYCOL 3350 17 GM PKT PO SCH ×3 (08:29→22:23)
[2017-06-26] MEDS ORDERED: NON-FORMULARY NEW DRUG (Lansoprazole [Prevacid] 15 MG) PO SCH (09:00)
--- NOTE | 2017-06-26 15:05 | ASMTCMCOM ---
CM Note CM Note Notes: Spoke with pt re her SNF choice. She was at [facility] last year and "loved it." She would like to go back there. Referral sent. Earliest d/c Thursday 06/28/ Date Signed: 06/26/2017 03:04 PM Electronically Signed By:YOHANNES Mast
[2017-06-26] MEDS: GABAPENTIN 300 MG CAP PO SCH (20:08)
[2017-06-27] MEDS: oxyCODONE IR 5 MG TAB PO PRN ×3 (02:14→16:59)
[2017-06-27] MEDS: ACETAMINOPHEN 500 MG TAB PO SCH (06:03)
--- NOTE | 2017-06-27 06:59 | NEUSURGPN ---
Assessment/Plan: 76 y F s/p L4/5 hardware removal and L5/S1 laminectomy and posterior fusion/ TLIF POD #2 - some leg pain overnight as expected with incisional pain - no new symptoms - continue with therapies today - dc PERCY today and change dressing - pain control with oral pain medications - will dc tylenol and change her oxycodone to hydrocodone - L spine xrays show excellent hardware placement - dc planning for ?tomorrow - the patient wants to go to rehab/SNF - will ask CM to assist with dc planning - SCDs/Teds/, Lovenox POD #1 - brace to be worn when out of bed or HOB > 30 degrees Subjective: night time leg cramping is most bothersome to her; back pain comes and goes but not too bad Objective: A&A X 3 face symmetric. speech fluent dressing C/D/I Moving all 4 extremities with excellent strength throughout - PERCY with serosanguinous drainage Urinary Catheter in Place: No Neurosurgery Physical Exam - Vitals, I&O, Labs I and O 06/26/17 06/27/17 06/28/17 05:59 05:59 05:59 Intake Total 2029 1350 Output Total 1380 1300 Balance 650 50 Weight 61.235 kg Intake: Oral (ml) 1180 1350 IV Intake (ml) 850 Output: Urine (ml) 1000 1150 Catheter 1000 Toilet 1150 Estimated Blood Loss (ml) 100 PERCY Drain Output (ml) 280 150 #1 Posterior Back Darryl [address] Other: Intake Quantity Yes Yes Sufficient Number of Voids Toilet 1 Vital Signs Temp Pulse Resp BP Pulse Ox 36.9 C 79 16 146/68 H 91 L 06/27/17 04:00 06/27/17 04:00 06/27/17 04:00 06/27/17 04:00 06/27/17 04:00 ICD10 Worksheet Patient Problems: Problems Problem Status Onset Altered mental status Acute Anxiety Acute Depression Acute Diarrhea Acute Encephalopathy acute Acute Medication side effect Acute Psychosis Acute Urinary tract infection Acute
[2017-06-27] MEDS: METHOCARBAMOL 750 MG TAB PO PRN ×3 (07:39→16:59)
[2017-06-27] MEDS: HYDROCODONE/APAP 10/325 TAB PO PRN ×3 (08:13→18:40)
[2017-06-27] MEDS: SENNOSIDES/DOCUSATE SODIUM TAB PO SCH ×2 (08:14→20:05)
[2017-06-27] MEDS: PANTOPRAZOLE SODIUM 40 MG TAB PO SCH (08:14)
[2017-06-27] MEDS: FAMOTIDINE 20 MG TAB PO SCH ×2 (08:14→20:05)
[2017-06-27] MEDS: ENOXAPARIN 40 MG/0.4 ML SYR SC SCH (08:17)
[2017-06-27] MEDS: POLYETHYLENE GLYCOL 3350 17 GM PKT PO SCH ×3 (10:49→20:05)
--- NOTE | 2017-06-27 13:46 | ASMTCMCOM ---
CM Note CM Note Notes: Patient has been accepted by [facility]. Anticipate d/c 06/28/17. CM following. Date Signed: 06/27/2017 01:46 PM Electronically Signed By:Meghan Santiago LCSW
[2017-06-27] MEDS: GABAPENTIN 300 MG CAP PO SCH (20:05)
[2017-06-28 03:16] VITALS: O2SAT 92
[2017-06-28] MEDS: METHOCARBAMOL 750 MG TAB PO PRN ×2 (03:19→08:40)
[2017-06-28] MEDS: HYDROCODONE/APAP 10/325 TAB PO PRN ×2 (03:19→09:27)
[2017-06-28 07:50] VITALS: BP 132/69; PULSE 88; RESP 16; TEMP 97.7
--- NOTE | 2017-06-28 08:03 | NEUSURGPN ---
Assessment/Plan: 76 y F s/p L4/5 hardware removal and L5/S1 laminectomy and posterior fusion/ TLIF POD #3 - pain overall improved with change from Oxycodone to [place]. no complaints this morning - continue with therapies today - change dressing - dc planning for today versus tomorrow - cleared to dc from our standpoint - awaiting placement per case management - the patient wants to go to rehab/SNF - SCDs/Teds/, Lovenox POD #1 - brace to be worn when out of bed or HOB > 30 degrees Subjective: no pain complaints this morning; happy and doing well with her progress Objective: A&A X 3 face symmetric. speech fluent dressing C/D/I Moving all 4 extremities with excellent strength throughout Urinary Catheter in Place: No Neurosurgery Physical Exam - Vitals, I&O, Labs I and O 06/27/17 06/28/17 06/29/17 05:59 05:59 05:59 Intake Total 1350 500 Output Total 1300 375 Balance 50 125 Intake: Oral (ml) 1350 500 Output: Urine (ml) 1150 375 Toilet 1150 375 PERCY Drain Output (ml) 150 #1 Posterior Back Darryl [address] Other: Intake Quantity Yes Sufficient Number of Voids Toilet 1 1 Number of Stools Toilet 1 Vital Signs Temp Pulse Resp BP Pulse Ox 36.5 C 88 16 132/69 H 92 06/28/17 07:50 06/28/17 07:50 06/28/17 07:50 06/28/17 07:50 06/28/17 07:50 ICD10 Worksheet Patient Problems: Problems Problem Status Onset Altered mental status Acute Anxiety Acute Depression Acute Diarrhea Acute Encephalopathy acute Acute Medication side effect Acute Psychosis Acute Urinary tract infection Acute
[2017-06-28] MEDS: SENNOSIDES/DOCUSATE SODIUM TAB PO SCH (08:41)
[2017-06-28] MEDS: POLYETHYLENE GLYCOL 3350 17 GM PKT PO SCH (08:42)
[2017-06-28] MEDS: ENOXAPARIN 40 MG/0.4 ML SYR SC SCH (08:43)
[2017-06-28] MEDS: PANTOPRAZOLE SODIUM 40 MG TAB PO SCH (08:43)
[2017-06-28] MEDS: FAMOTIDINE 20 MG TAB PO SCH (08:44)
--- NOTE | 2017-06-28 10:59 | PDIAF ---
- Diagnosis Diagnosis: lumbar spinal stenosis, DDD. Code Status: Full Code - Medication Management Discharge Medications: Medications to Continue on Transfer Gabapentin [Neurontin] 1,800 mg PO HS 06/03/17 [Last Taken 06/24/17 23:00] Lansoprazole [Prevacid] 15 mg PO DAILY 06/04/17 [Last Taken 06/24/17 10:00] HYDROcodone/APAP 10/325 [[place] 10/325 (*)] 2 tab PO Q6HRS PRN tab 06/28/17 [ Last Taken Unknown] Methocarbamol [Robaxin 750 mg (*)] 750 mg PO QID PRN tab 06/28/17 [Last Taken Unknown] Polyethylene Glycol 3350 [Miralax 17 gm (*)] 17 gm PO DAILY PRN pkt 06/28/17 [ Last Taken Unknown] Sennosides/Docusate Sodium [Senokot-S] 1 - 2 tab PO BID tab 06/28/17 [Last Taken Unknown] Discharge Medications: Refer to the Discharge Home Medication list for PRN reason. - Orders Services needed: Registered Nurse, Physical Therapy, Occupational Therapy Isolation Type: None Diet Recommendation: no restrictions on diet Wound Care Instructions: remove dressing to shower, no baths or soaking Activity/Weight Bearing Restrictions: no bending, twisting, lifting >10lbs. Walking and light activity encouraged. - Follow Up Care Current Providers and Referrals: Sera Pittman MD [Primary Care Provider] -
--- NOTE | 2017-06-28 13:02 | ASMTCMCOM ---
CM Note CM Note Notes: Pt medically stable for d/c to [facility]. Orders sent in [employer]scripts. Lorie scheduled wc van for 12:15. Date Signed: 06/28/2017 01:03 PM Electronically Signed By:YOHANNES Ramesh
--- NOTE | 2017-06-28 13:03 | ASDISCHSUM ---
Discharge Information Plan Status:SNF Medically Cleared to Leave: Discharge Date:06/28/2017 12:27 PM D/C Disposition:Detention Facility ADT D/C Disposition:Other Rehab, Not [place] Projected Discharge Date:06/28/2017 11:00 AM Transportation at D/C:Wheelchair Van Discharge Delay Reason: Follow-Up Date:06/28/2017 11:00 AM Discharge Slot: Final Diagnosis: Placement Information Referral Type:*Retirement/SNF Referral ID:[id number] Provider Name:[facility] Address 1:[address] Address 2: City:[place] Selection Factors: State:[place] Patient Contact Information Contact Name:LEONID Relationship: Address:[address] City:[place] Alternate Phone: State/Zip Code:[place] [address] Email: Financial Information Financial Class: Primary Plan Desc:MEDICARE INPATIENT Primary Plan Number:[id number] Secondary Plan Desc:[employer]/MDR SUPPLEMENT Secondary Plan Number:[id number] Assessment Information [facility] CM Progress Note CM Note CM Note Notes: Telephone call from SANCHEZ Bonilla reporting pt requests SNF d/c and may be anxious about options since it is a holiday wknd; attempted to meet w pt who was soundly sleeping. Pt has Medicare requiring 3 mdnght stay. CM to follow. Date Signed: 06/25/2017 02:45 PM Electronically Signed By:YOHANNES Ramesh BC CM Progress Note CM Note CM Note Notes: Spoke with pt re her SNF choice. She was at [facility] last year and "loved it." She would like to go back there. Referral sent. Earliest d/c Wednesday Signed: 06/26/2017 03:04 PM Electronically Signed By:YOHANNES Mast [facility] CM Progress Note CM Note CM Note Notes: [facility]. Anticipate d/c 06/28/17. CM following. Date Signed: 06/27/2017 01:46 PM Electronically Signed By:Meghan Santiago LCSW [facility] CM Progress Note CM Note CM Note Notes: Pt medically stable for d/c to [facility]. Orders sent in [employer]. Lorie scheduled van for 12:15. Date Signed: 06/28/2017 01:03 PM Electronically Signed By:YOHANNES Ramesh Intervention Information
== END 2017-06-28 12:27 | DRG 455 ==
LOC: F3N 04:54
PROVIDERS: ADMIT Neurological Surgery; ATTEND Neurological Surgery
DX: M43.17 Spondylolisthesis, lumbosacral region (principal); M46.1 Sacroiliitis, not elsewhere classified; M54.40 Lumbago with sciatica, unspecified side; M54.17 Radiculopathy, lumbosacral region; G89.29 Other chronic pain; Z96.651 Presence of right artificial knee joint; F11.90 Opioid use, unspecified, uncomplicated
CPT/HCPCS: 97116-GP; 97161-GP; 97166-GO; 97530-GP; 97535-GO; C1713; G8978-GP-CK; G8979-GP-CI; G8987-GO-CK; G8988-GO-CJ; J0171; J0690; J1100; J1170; J1650; J2250; J2274; J2310; J2405; J2704; J2780; J3010; J7060

== ENCOUNTER → 2017-07-22 | Outpatient (CLI) | payer OTHER, MEDICARE | LOC: FIMAGING 14:33 → EDSTATUS 14:34 | PROVIDERS: ATTEND Physician Assistant Surgical | DX: Z09 Encounter for follow-up examination after completed treatment for conditions other than malignant neoplasm (principal); Z98.1 Arthrodesis status ==

== ENCOUNTER 2017-07-24 21:56 | Inpatient (IN) | payer OTHER, MEDICARE ==
--- NOTE | 2017-07-24 21:40 | EDPHY ---
H & P HPI/ROS: CHIEF COMPLAINT: Overdose HISTORY OF PRESENT ILLNESS: This patient is a 68 y/o female with history of depression and prior overdose arriving emergently via EMS following a possible antidepressant overdose. Per EMS report, the patient's stated she had been down for about 24 hours, and that she overdoses frequently and he usually lets her sleep it off. EMS crews found prescription bottles for gabapentin and Vicodin, but the patient's told them that the patient may have hidden a 90 day supply of amitriptyline somewhere. EMS could not find a bottle of this medication. They state they found the patient on the floor with feces spread across the room. Patient was unresponsive to EMS on arrival, no radial pulse or BP obtainable on scene. EKG showed prolonged QRS, and the patient's denied knowledge of abnormal EKGs in the past. In transport, the patient was responsive to painful stimuli, BP 100/52 and a radial pulse was palpable. Her oxygen saturation was around 80% so EMS inserted an NPA. Further HPI unobtainable due to patient presentation. REVIEW OF SYSTEMS: A 10 point review of systems was unobtainable due to patient presentation. Past Medical/Surgical History: Chronic pain Alcohol dependence Depression Dementia UTI Diverticulitis History of lumbar compression fracture. Reviewed prior medical history including admission 05/24/17 for altered mental status. Social History: . Lives in [place] with her . Retired. Physical Exam: General Appearance: Obtunded. Moaning loudly. Opens her eyes to voice and looks at me briefly Eyes: Pupils equal and round, 3mm, small amount of conjunctival discharge ENT, Mouth: Mucous membranes dry Neck: Normal inspection Respiratory: Lungs are clear to auscultation anteriorly Cardiovascular: Regular tachycardia Gastrointestinal: Abdomen is soft Neurological: obtunded, ZABALA Skin: Skin breakdown on lower extremities and groin. Feces covering her legs and groin. Extremities: erythema of later thighs Psychiatric: Unable to assess. Constitutional: Initial Vital Signs Temperature (C) 36.7 C 07/24/17 21:50 Heart Rate 105 H 07/24/17 21:50 Blood Pressure 193/101 H 07/24/17 21:50 O2 Sat (%) 100 07/24/17 21:50 O2 Delivery Mode Non-Rebreather Mask O2 (L/minute) 15 Allergies/Adverse Reactions: promethazine Allergy (Unknown, Verified 06/04/17 11:49) Anxiety Home Medications: Medication Instructions Recorded Gabapentin [Neurontin] 1,800 mg PO HS 06/03/17 Lansoprazole [Prevacid] 15 mg PO DAILY 06/04/17 HYDROcodone/APAP [[place] 2 tab PO Q6HRS PRN tab 06/28/17 10/325 (*)] Methocarbamol [Robaxin 750 mg (*)] 750 mg PO QID PRN tab 06/28/17 Polyethylene Glycol 3350 [Miralax 17 gm PO DAILY PRN pkt 06/28/17 17 gm (*)] Sennosides/Docusate Sodium 1 - 2 tab PO BID tab 06/28/17 [Senokot-S] Medical Decision Making - Diagnostics EKG Interpretation: EKG interpreted by me reveals sinus tachycardia, rate 101, LBBB consistent with prior EKGs. Interpretation: sinus tachycardia. Imaging Results: Imaging Impressions Head CT 07/24/17 22:00 Impression: Atrophic elderly head CT. Nothing acute identified.. Results called to Dr. De La Torre and at 10:56 PM General information for patients regarding this examination can be found at [email or web address]. If you have questions or comments about this report, please contact me at (hospital) or [phone] (cell). Chest X-Ray 07/24/17 22:[address]: [address] 07/24/17 22:00 Impression: Atrophic elderly head CT. Nothing acute identified.. Results called to Dr. De La Torre and at 10:56 PM General information for patients regarding this examination can be found at [email or web address]. If you have questions or comments about this report, please contact me at (hospital) or [phone] (cell). Chest X-Ray 07/24/17 22:02 Impression: Negative. ED Course/Re-evaluation: 21:50 Met EMS on arrival. Patient is obtunded and moaning loudly. She opens her eyes to voice and looks at me. Pt agitated, tachycardic and hypertensive. reception clerk reveals sinus tach, 105. Considered intubation, but pt breathing adequately, has a gag reflex. Will obs for now and titrate down O2 as tolerated. Ativan 0.5mg IV x 3 doses given for agitation. EKG at bedside shows sinus tachycardia, LBBB. Known LBBB from review of previous EKG. No widening of QRS compared to prior EKG. No EKG evidence of TCA overdose. Narcan 0.4mg IV given with no change in mental status. Called pt's at home, no answer, and unable to obtain any information from the pt. Pt afebrile, will initiate w/u for AMS of unclear etiology. Old medical record reviewed; prior admissions for overdose with similar presentation. Plan for labs including CBC, chemistries, lactic, liver, troponin, UA, tox screen. The patient has a large quantity of diarrhea across her legs and groin, so plan for GI pathogen PCR as well. CXR and CT head unremarkable. still not available. Likely overdose, given prior history. No evidence of infectious etiology. Initial lactate elevated, repeat lactate ordered; most likely secondary to dehydration, doubt infection. CK elevated, c/w rhabdo, with prolonged downtime. IV NS given. Pt' s mental status unchanged throughout her ED stay. 22:30 Consulted with hospitalist service. Dr. Gabriel accepts admission to ICU. Differential Diagnosis: includes though not limited to overdose, pneumonia, encephalitis, CVA, hypoglycemia, hyponatremia, seizure, rhabdo. Critical Care Time: Critical care time spent by me, Dr. Suarez, exclusively with this patient was 40 minutes, exclusive of PA time and exclusive of procedures. I spent time in discussions with EMS, RN's, attempting to contact , ordering/reviewing tests, consultations. The organ system at risk was: all, overdose - Data Points Laboratory Results: Laboratory Results 07/24/17 22:01 07/24/17 22:01 07/24/17 07/24/17 22:25 22:01 Sodium 147 mEq/L H mEq/L (135-145) Potassium 4.4 mEq/L mEq/L (3.5-5.2) Chloride 107 mEq/L mEq/L (97-110) Carbon Dioxide 22 mEq/l mEq/l (22-31) Anion Gap 18 mEq/L H mEq/L (8-16) BUN 16 mg/dL mg/dL (7-23) Creatinine 0.7 mg/dL mg/dL (0.6-1.0) Estimated GFR > 60 Glucose 125 mg/dL H mg/dL (70-100) Calcium 10.8 mg/dL H mg/dL (8.5-10.4) Phosphorus 4.2 mg/dL mg/dL (2.5-4.5) Total Bilirubin 0.8 mg/dL mg/dL (0.1-1.4) Conjugated Bilirubin 0.3 mg/dL mg/dL (0.0-0.5) Unconjugated Bilirubin 0.5 mg/dL mg/dL (0.0-1.1) AST 65 IU/L H IU/L (14-46) ALT 50 IU/L IU/L (9-52) Alkaline Phosphatase 126 IU/L IU/L (38-126) Creatine Kinase 1375 IU/L H IU/L (0-156) CK-MB (CK-2) Fraction 28.20 ng/mL H ng/mL (0.00-3.19) CK-MB (CK-2) % 2.1 % % (0.0-4.0) Creatine Kinase Interp NEGATIVE (NEGATIVE) Troponin I 0.045 ng/mL H ng/mL (0.000-0.034) Total Protein 7.3 g/dL g/dL (6.3-8.2) Albumin 4.9 g/dL g/dL (3.5-5.0) Urine Color YELLOW Urine Appearance HAZY Urine pH 5.0 (5.0-7.5) Ur Specific [place] 1.024 (1.002-1.030) Urine Protein 1+ H (NEGATIVE) Urine Ketones 1+ H (NEGATIVE) Urine Blood 2+ H (NEGATIVE) Urine Nitrate NEGATIVE (NEGATIVE) Urine Bilirubin NEGATIVE (NEGATIVE) Urine Urobilinogen NEGATIVE EU EU (0.2-1.0) Ur Leukocyte Esterase TRACE H (NEGATIVE) Urine RBC 5-10 /hpf H /hpf (0-3) Urine WBC 1-3 /hpf /hpf (0-3) Ur Epithelial Cells TRACE /lpf /lpf (NONE-1+) Hyaline Casts 1-5 /lpf /lpf (0-1) Urine Mucus 3+ /lpf H /lpf (NONE-1+) Urine Glucose NEGATIVE (NEGATIVE) Salicylates < 1.0 mg/dL L mg/dL (2.0-20.0) Urine Opiates Screen NON-NEGATIVE H (NEGATIVE) Acetaminophen < 10 mcg/mL L mcg/mL (10-30) Urine Barbiturates NEGATIVE (NEGATIVE) Ur Phencyclidine Scrn NEGATIVE (NEGATIVE) Ur Amphetamine Screen NEGATIVE (NEGATIVE) U Benzodiazepines Scrn NEGATIVE (NEGATIVE) Urine Cocaine Screen NEGATIVE (NEGATIVE) U Marijuana (THC) Screen NEGATIVE (NEGATIVE) Ethyl Alcohol < 10 mg/dL mg/dL (0-10) Microbiology Results: MICROBIOLOGY 07/24/17 22:28 Stool Gastrointestinal Tract Panel (PCR) - Final Medications Given: Discontinued Medications Sodium Chloride (Ns) 1,000 mls @ 0 mls/hr IV EDNOW ONE; Wide Open PRN Reason: Protocol Stop: 07/24/17 21:59 Last Admin: 07/24/17 21:50 Dose: 1,000 mls Sodium Chloride (Ns) 1,000 mls @ 0 mls/hr IV ONCE ONE PRN Reason: Wide Open Stop: 07/25/17 00:03 Last Admin: 07/25/17 01:05 Dose: 1,000 mls Lorazepam (Ativan Injection) 0.5 mg IVP EDNOW ONE Stop: 07/24/17 22:06 Last Admin: 07/24/17 22:07 Dose: 0.5 mg Lorazepam (Ativan Injection) 0.5 mg IVP EDNOW ONE Stop: 07/24/17 22:41 Last Admin: 07/24/17 22:40 Dose: 0.5 mg Naloxone HCl (Narcan) 0.4 mg IVP EDNOW ONE Stop: 07/24/17 21:59 Last Admin: 07/24/17 21:59 Dose: 0.4 mg Departure - Departure Disposition: [facility] Inpatient Acute Clinical Impression: Obtundation Medication overdose Qualifiers: Encounter type: initial encounter Injury intent: undetermined intent Qualified Code(s): T50.904A - Poisoning by unspecified drugs, medicaments and biological substances, undetermined, initial encounter Rhabdomyolysis Qualifiers: Rhabdomyolysis type: non-traumatic Qualified Code(s): M62.82 - Rhabdomyolysis Condition: Critical Report Scribed for: Elsa Suarez Report Scribed by: Amisha Mendez Date of Report: 07/24/17 Time of Report: 21:42 Physician Review and Approval Statement: 07/24/17 21:42 Portions of this note were transcribed by a medical representative. I personally performed a history, physical exam, medical decision making, and confirmed accuracy of information the transcribed note.
[2017-07-24] MEDS ORDERED: NALOXONE HCL 0.4 MG/ML INJ IVP ONE (21:58)
[2017-07-24] MEDS ORDERED: NS 1,000 ML IV ONE (21:58)
[2017-07-24] MEDS ORDERED: LORazepam 2 MG/ML INJ IVP ONE ×2 (22:05→22:40)
[2017-07-24 22:20] LABS: PLATELET COUNT 473 10^3/uL (150-400)
[2017-07-24 22:32] LABS: CREATINE KINASE 1375 IU/L (0-156)
[2017-07-24] MEDS ORDERED: ONDANSETRON DISINTEGRATING 4 MG TAB PO PRN (22:33)
[2017-07-24] MEDS ORDERED: ONDANSETRON 4 MG/2 ML VIAL IVP PRN (22:33)
[2017-07-24] MEDS ORDERED: LORazepam 2 MG/ML INJ ONE (22:34)
--- NOTE | 2017-07-24 23:04 | CPEKG ---
Heart Rate: 101 RR Interval: 594 P-R Interval: 144 QRSD Interval: 138 QT Interval: 408 QTC Interval: 529 P [place]: 108 QRS [place]: -54 T Wave [place]: 120 EKG Severity - ABNORMAL ECG - EKG Impression: SINUS TACHYCARDIA EKG Impression: LEFT BUNDLE BRANCH BLOCK Electronically Signed By: Elsa Suarez 25-Jul-2017 17:23:31
--- NOTE | 2017-07-24 23:06 | CPEKG ---
Heart Rate: 90 RR Interval: 667 P-R Interval: 164 QRSD Interval: 134 QT Interval: 444 QTC Interval: 544 P [place]: 79 QRS [place]: -45 T Wave [place]: 104 EKG Severity - ABNORMAL ECG - EKG Impression: SINUS RHYTHM EKG Impression: LEFT BUNDLE BRANCH BLOCK Electronically Signed By: Elsa Suarez 25-Jul-2017 17:23:08
--- NOTE | 2017-07-24 23:21 | PDGENHP ---
History and Physical - Chief Complaint Ingestion - History of Present Illness 68 yo F w/ hx of depression w/ prior OD attempts, chronic pain, recent lumbar spinal surgery, and frequent ED visits for AMS presents to ED via EMS for suspected overdose. Per EMS, patient's stated that patient had been down for about 24 hours. He stated that she overdoses frequently and he usually lets her sleep it off. EMS crews found bottles of gabapentin and Vicodin, which seem to be mostly full. states that she may have hidden a supply of amitriptyline somewhere but cannot be sure. EMS found patient on the ground with feces spread across the room. Upon arrival to the ED patient was delirious and responsive mostly to painful stimuli. was not present and bedside and did not respond to phone calls. Laboratory work-up notable for leukocytosis, elevated CK, and indeterminate troponin. ECG shows known LBBB and QT of 444, relatively similar to baseline ECG. She is hemodynamically stable and in sinus rhythm currently. History Information - Allergies/Home Medication List Allergies/Adverse Reactions: promethazine Allergy (Unknown, Verified 06/04/17 11:49) Anxiety Home Medications: Gabapentin [Neurontin] 1,800 mg PO HS 06/03/17 [Last Taken 06/24/17 23:00] Lansoprazole [Prevacid] 15 mg PO DAILY 06/04/17 [Last Taken 06/24/17 10:00] I have personally reviewed and updated: family history, medical history - Past Medical History dementia, psychiatric history (depression with psychotic features, prior psych hospitalizations) Additional medical history: etoh abuse--apparently in remission, though this has been claimed in the past as well and then later found out to be untrue. diverticulitis/osis. lumbar compression fx. chronic pain - Surgical History Reports: cholecystectomy, spinal surgery Additional surgical history: orthopedic surgeries. breast augmentation - Family History Additional family history: parents both with alcoholism - Social History Smoking Status: Never smoked Additional social history: 2 children Review of Systems Review of Systems: ROS: 10pt was reviewed & negative except for what was stated in HPI & below Physical Exam Physical Exam: Temp Pulse Resp BP Pulse Ox 36.7 C 87 22 H 186/100 H 100 07/24/17 22:03 07/24/17 23:06 07/24/17 23:06 07/24/17 23:06 07/24/17 23:06 O2 (L/minute) 4 Constitutional: obese, uncomfortable, unkempt Eyes: anicteric sclera, other (L pupil larger than right, both sluggish but reactive) Cardiovascular: regular rate and rhythym, no murmur, rub, or gallop Respiratory: no respiratory distress, rhonchi Gastrointestinal: normoactive bowel sounds, soft, non-tender abdomen Skin: warm, other (Multiple areas of erythema, well healing lumbar surgical incision) Neurologic: other (Responsive to painful stimuli, moving all extremities) Psychiatric: encephalopathic, agitated Lab Data & Imaging Review 07/24/17 22:01 07/24/17 22: WBC 13.10 10^3/uL (3.80-9.50) H 07/24/17 22: RBC 4.75 10^6/uL (4.18-5.33) 07/24/17 22:01 Hgb 15.2 g/dL (12.6-16.3) 07/24/17 22:01 POC Hgb 15.6 gm/dL (12.6-16.3) 07/24/17 22:00 Hct 44.5 % (38.0-47.0) 07/24/17 22:01 POC Hct 46 % (38-47) 07/24/17 22:00 MCV 93.7 fL (81.5-99.8) 07/24/17 22:01 MCH 32.0 pg (27.9-34.1) 07/24/17 22:01 MCHC 34.2 g/dL (32.4-36.7) 07/24/17 22:01 RDW 11.9 % (11.5-15.2) 07/24/17 22:01 Plt Count 473 10^3/uL (150-400) H 07/24/17 22:01 MPV 9.0 fL (8.7-11.7) 07/24/17 22:01 Neut % (Auto) 81.3 % (39.3-74.2) H 07/24/17 22:01 Lymph % (Auto) 12.5 % (15.0-45.0) L 07/24/17 22: [place] % (Auto) 5.3 % (4.5-13.0) 07/24/17 22:01 Eos % (Auto) 0.2 % (0.6-7.6) L 07/24/17 22:01 Baso % (Auto) 0.4 % (0.3-1.7) 07/24/17 22:01 Nucleat RBC Rel Count 0.0 % (0.0-0.2) 07/24/17 22:01 Absolute Neuts (auto) 10.65 10^3/uL (1.70-6.50) H 07/24/17 22:01 Absolute Lymphs (auto) 1.64 10^3/uL (1.00-3.00) 07/24/17 22:01 Absolute Monos (auto) 0.69 10^3/uL (0.30-0.80) 07/24/17 22:01 Absolute Eos (auto) 0.03 10^3/uL (0.03-0.40) 07/24/17 22:01 Absolute Basos (auto) 0.05 10^3/uL (0.02-0.10) 07/24/17 22:01 Absolute Nucleated RBC 0.00 10^3/uL (0-0.01) 07/24/17 22:01 Immature Gran % 0.3 % (0.0-1.1) 07/24/17 22:01 Immature Gran # 0.04 10^3/uL (0.00-0.10) 07/24/17 22:01 VBG Lactic Acid 2.3 mmol/L (0.7-2.1) H 07/24/17 22:01 POC Sodium 146 mEq/L (135-145) H 07/24/17 22:00 Sodium 147 mEq/L (135-145) H 07/24/17 22:01 POC Potassium 3.5 mEq/L (3.3-5.0) 07/24/17 22:00 Potassium 4.4 mEq/L (3.5-5.2) 07/24/17 22:01 POC Chloride 107 mEq/L (97-110) 07/24/17 22:00 Chloride 107 mEq/L (97-110) 07/24/17 22:01 Carbon Dioxide 22 mEq/l (22-31) 07/24/17 22:01 Anion Gap 18 mEq/L (8-16) H 07/24/17 22:01 POC BUN 17 mg/dL (7-23) 07/24/17 22:00 BUN 16 mg/dL (7-23) 07/24/17 22:01 Creatinine 0.7 mg/dL (0.6-1.0) 07/24/17 22:01 POC Creatinine 0.7 mg/dL (0.6-1.0) 07/24/17 22:00 Estimated GFR > 60 07/24/17 22:01 Glucose 125 mg/dL (70-100) H 07/24/17 22:01 POC Glucose 130 mg/dL (70-100) H 07/24/17 22:00 Calcium 10.8 mg/dL (8.5-10.4) H 07/24/17 22: Phosphorus 4.2 mg/dL (2.5-4.5) 07/24/17 22:01 Total Bilirubin 0.8 mg/dL (0.1-1.4) 07/24/17 22: Conjugated Bilirubin 0.3 mg/dL (0.0-0.5) 07/24/17 22: Unconjugated Bilirubin 0.5 mg/dL (0.0-1.1) 07/24/17 22:01 AST 65 IU/L (14-46) H 07/24/17 22:01 ALT 50 IU/L (9-52) 07/24/17 22:01 Alkaline Phosphatase 126 IU/L (38-126) 07/24/17 22:01 Creatine Kinase 1375 IU/L (0-156) H 07/24/17 22:01 CK-MB (CK-2) Fraction 28.20 ng/mL (0.00-3.19) H 07/24/17 22:01 CK-MB (CK-2) % 2.1 % (0.0-4.0) 07/24/17 22: Creatine Kinase Interp NEGATIVE (NEGATIVE) 07/24/17 22: Troponin I 0.045 ng/mL (0.000-0.034) H 07/24/17 22:01 Total Protein 7.3 g/dL (6.3-8.2) 07/24/17 22: Albumin 4.9 g/dL (3.5-5.0) 07/24/17 22:01 Urine Color YELLOW 07/24/17 22:25 Urine Appearance HAZY 07/24/17 22:25 Urine pH 5.0 (5.0-7.5) 07/24/17 22: Ur Specific [place] 1.024 (1.002-1.030) 07/24/17 22:25 Urine Protein 1+ (NEGATIVE) H 07/24/17 22:25 Urine Ketones 1+ (NEGATIVE) H 07/24/17 22: Urine Blood 2+ (NEGATIVE) H 07/24/17 22:25 Urine Nitrate NEGATIVE (NEGATIVE) 07/24/17 22: Urine Bilirubin NEGATIVE (NEGATIVE) 07/24/17: Urine Urobilinogen NEGATIVE EU (0.2-1.0) 07/24/17 22: Ur Leukocyte Esterase TRACE (NEGATIVE) H 07/24/17 22:25 Urine RBC 5-10 /hpf (0-3) H 07/24/17 22:25 Urine WBC 1-3 /hpf (0-3) 07/24/17 22: Ur Epithelial Cells TRACE /lpf (NONE-1+) 07/24/17: Hyaline Casts 1-5 /lpf (0-1) 07/24/17: Urine Mucus 3+ /lpf (NONE-1+) H 07/24/17 22: Urine Glucose NEGATIVE (NEGATIVE) 07/24/17 22: Salicylates < 1.0 mg/dL (2.0-20.0) L 07/24/17 22: Urine Opiates Screen NON-NEGATIVE (NEGATIVE) H 07/24/17: Acetaminophen < 10 mcg/mL (10-30) L 07/24/17 22:01 Urine Barbiturates NEGATIVE (NEGATIVE) 07/24/17 22:25 Ur Phencyclidine Scrn NEGATIVE (NEGATIVE) 07/24/17 22:25 Ur Amphetamine Screen NEGATIVE (NEGATIVE) 07/24/17 22: U Benzodiazepines Scrn NEGATIVE (NEGATIVE) 07/24/17 22:25 Urine Cocaine Screen NEGATIVE (NEGATIVE) 07/24/17 22:25 U Marijuana (THC) Screen NEGATIVE (NEGATIVE) 07/24/17 22: Ethyl Alcohol < 10 mg/dL (0-10) 07/24/17 22: Imaging Review: Imaging Impressions Head CT 07/24/17 22:00 Impression: Atrophic elderly head CT. Nothing acute identified.. Results called to Dr. De La Torre and at 10:56 PM General information for patients regarding this examination can be found at [email or web address]. If you have questions or comments about this report, please contact me at (hospital) or [phone] (cell). Chest X-Ray 07/24/17 22:02 Impression: Negative. Visualized and Interpreted EKG results: Yes EKG Interpretation: Positive for: left bundle branch block, normal sinsus rhythm (QT 444) Assessment & Plan Assessment: 68 yo F w/ hx of depression w/ prior OD attempts, chronic pain, recent lumbar spinal surgery, and frequent ED visits for AMS presents to ED via EMS for suspected overdose. Plan: 1. Acute toxic encephalopathy, possible TCA ingestion - 2/2 suspected overdose w / unknown substance, possibly amitriptyline. Patient has long history of depression, alcoholism, and various overdose attempts. Patient was reportedly down for 24 hours as her was "letting her sleep it off". Patient responding to painful stimuli and moving all extremities but significantly encephalopathic. She is hemodynamically stable, protecting her airway, and head CT reveals no acute findings. S/p Narcan with little effect. - Admit to ICU for observation - Monitor on telemetry, trend ECG q4h and monitor QTc - Sodium Bicarb for significant ECG changes or unstable arrhythmias - Check LFTs, ETOH, drug screen, APAP, ASA 2. Rhabdomyolysis - 2/2 prolonged immobility. Overall appears mild, renal function normal and CK 1300. UA w/ 2+ blood and minimal RBCs c/w myoglobinuria. - Continue IVF, trend CK 3. Indeterminate troponin - Troponin .045, suspect demand ischemia although patient did have recent surgery and is at high risk for cardiac complications. - Monitor on telemetry, trend cardiac enzymes 4. Leukocytosis - No clear evidence of infection currently, likely stress response. CXR and UA both unremarkable. Monitor off of antibiotics for now. 5. Hypernatremia - 2/2 lack of free water, trend BMP after IVF. 6. Depression - May need M1 hold if this was truly intentional overdose, will need additional collateral. Diet - NPO Code - Full Ppx - LMWH, low dose Dispo - Admit to ICU under inpatient status I spent total of 60 minutes of critical care time evaluating patient, interpreting data, and coordinating care.
[2017-07-25] MEDS ORDERED: NALOXONE HCL 2 MG/2 ML SYR IVP ONE (00:02)
[2017-07-25] MEDS ORDERED: NS 1,000 ML IV ONE (00:02)
--- NOTE | 2017-07-25 02:41 | PDMN ---
Medical Necessity Medical necessity: C/M review: est. > 2 MN LOS for acute toxic encephalopathy, possible tricyclic antidepressant ingestion, secondary to suspected overdose with unknown substance, possibly amitriptyline, rhabdomyolysis, indeterminate troponin, leukocytosis, hypernatremia requiring IV fluids ongoing cardiac monitoring, pulse oximetry, supplemental O2, NPO, frequent neuro checks in ICU, comorbid patient down 24 hrs. prior to this admission, history or depression with psychotic features and prior OD attempts, chronic pain, dementia, alcohol abuse,. recent lumbar spinal surgery, frequent ED visits for altered mental status, prior psych hospitalizations per H/P.
[2017-07-25 04:56] LABS: PLATELET COUNT 359 10^3/uL (150-400)
[2017-07-25 05:03] LABS: CREATINE KINASE 1166 IU/L (0-156)
--- NOTE | 2017-07-25 05:41 | CPEKG ---
Heart Rate: 91 RR Interval: 659 P-R Interval: 148 QRSD Interval: 136 QT Interval: 400 QTC Interval: 493 P [place]: 86 QRS [place]: -51 T Wave [place]: 115 EKG Severity - ABNORMAL ECG - EKG Impression: SINUS RHYTHM EKG Impression: LEFT BUNDLE BRANCH BLOCK Electronically Signed By: Prabhjot Coombs 25-Jul-2017 10:21:45
--- NOTE | 2017-07-25 09:16 | CPEKG ---
Heart Rate: 94 RR Interval: 638 P-R Interval: 148 QRSD Interval: 126 QT Interval: 400 QTC Interval: 501 P [place]: 83 QRS [place]: -56 T Wave [place]: 107 EKG Severity - ABNORMAL ECG - EKG Impression: SINUS RHYTHM EKG Impression: LEFT BUNDLE BRANCH BLOCK Electronically Signed By: Prabhjot Coombs 25-Jul-2017 10:21:49
--- NOTE | 2017-07-25 10:57 | WOCRNPDOC ---
WOCRN Advanced Assessment Note - Skin Integrity Problem, Advanced Assess Right Cheek Blister Dressing Type: Open to Air Exudate Characteristic(s): None, Dried [place] Wound Tissue: Blanching, Erythema [place] Wound Swelling: None Wound Bed Color: Red Wound Bed Constitution: Red/[place] - Non Granular Tissue, De-roofed Serous Blister Site Odor: None Site Measurement - Head-to-Toe Length X Width X Depth (cm): 0.6cmx0.8cmx0.1cm Pressure Injury Stage: Stage 2 Pressure Injury Present on Admit: Yes Skin Integrity Problem Comment: Small, de-roofed blister noted over R cheekbone , consistent w/ stage 2 pressure injury from patient lying on her R side. Periwound skin is intact and blanching. Recommend hydrogel and covering site w/ a band-aid. No need for wound care to follow this wound ongoing. Bilateral Knee Dressing Type: Open to Air Exudate Amount: None Exudate Characteristic(s): None [place] Wound Swelling: None Wound Bed Color: Red Skin Integrity Problem Comment: Previously non-blanching tissue over both R and L knees, now blanching w/ intact skin. These injuries were the result of patient being down for a long period of time, obtunded. Presently in bed w/ no pressure over these areas; expect blanching erythema to resolve, no pressure injuries at this time. No need for wound care to follow ongoing.
[2017-07-25] MEDS: ENOXAPARIN 40 MG/0.4 ML SYR SC SCH (10:58)
--- NOTE | 2017-07-25 11:53 | GCON ---
[f rep st] CONSULTATION BRANDING MACHINE TENDER CONSULTATION REASON FOR ADMISSION: Encephalopathy with likely amitriptyline overdose. HISTORY OF PRESENT ILLNESS: The patient is a 76-year-old white female with extensive past medical hi story including dementia, alcohol abuse, diverticulosis, lumbar compression fracture and chronic pain . She has had several admissions to this hospital for possible overdoses. She was brought in via EM S after being found down for approximately 24 hours. Her apparently notices that she overdos es frequently and attempts to let her sleep it off. She was mostly unresponsive upon arrival. EKG s howed a left bundle branch block and a QT of 444. She was subsequently admitted to the intensive car e unit. Currently, she is somewhat somnolent, but arousable. All history is gleaned from the medica l record. PAST MEDICAL HISTORY: As above. ALLERGIES: Include promethazine. MEDICATIONS: Include gabapentin and Prevacid. FAMILY HISTORY: Noncontributory. SOCIAL HISTORY: No history of tobacco use. No current alcohol use. She is and has 2 childr en. PAST SURGICAL HISTORY: She had cholecystectomy and spinal surgery. PHYSICAL EXAMINATION: VITAL SIGNS: Blood pressure is 132/69, pulse is 99, respirations 20, temperat ure 37.7, oxygen saturation 95% on room air. GENERAL: She is a well-developed 76-year-old white fem shari who currently is quite somnolent. HEENT: Eyes are sluggish, but reactive to light. Throat is n ormal. NECK: Supple. There is no cervical adenopathy. HEART: Regular rate and rhythm with a 2/6 systolic murmur in left sternal border without radiation. LUNGS: Diminished breath sounds, but no w heeze. ABDOMEN: Soft, nontender. Bowel sounds are present in all 4 quadrants. EXTREMITIES: No cl ubbing, cyanosis or edema. LABORATORIES: White count is 13.8, hemoglobin 11, hematocrit 34, platelet count is 359. Sodium 147, potassium 3.9, chloride 113, CO2 is 23, BUN is 14, creatinine 0.7, glucose is 107. CPK is elevated at 1166, this is down from admission of 1375. Urinalysis pH is 5, specific gravity 1.024, trace leuk ocyte esterase. Influenza A and B are negative. Urine drug screen is negative for opiates. C diffi cile is negative. IMPRESSION: 1. Encephalopathy, likely secondary to amitriptyline overdose. She apparently was given Narcan in t emergency room without any improvement. 2. Mild rhabdomyolysis. 3. Leukocytosis. 4. Hypernatremia. 5. Patient is full COR. RECOMMENDATIONS: 1. Close cardiovascular monitoring. 2. Repeat EKG. 3. DVT and PE prophylaxis. 4. Stress ulcer prophylaxis. /[id number]/MODL
[2017-07-25] MEDS ORDERED: D5W 1/2 NS 1,000 ML IV SCH (12:15)
[2017-07-25] MEDS: cefTRIAXone 1 GM in STERILE WATER INJ 10 ML IV SCH (12:44)
--- NOTE | 2017-07-25 16:33 | HOSPPROG ---
Hospitalist Progress Note Assessment/Plan: #. Encephalopathy - possibly related to overdose of medications. Apparently recurrent history of and will often watch her and let her clear by report. Uncertain as to her care at home and I think we should look at placement options. Adult protective services may also be appropriate. #. Rhabdomyolysis - continue IVF's. Trend CPK. #. Elevated troponin - asymptomatic. Possible demand ischemia. #. Leukocytosis - UA suggestive of infection. Start Ceftriaxone. #. Hypernatremia - adjust IVF's to D5 1/2 NS. Repeat in AM. #. Depression - I do not see that she takes any medications as outpatient. Discuss when more alert. #. Chronic LBP - gabapentin used as outpatient. #. Bowel/bladder - d/c barnett. Bowel regimen if constipation develops. #. Dispo - await PT/OT/ST evaluations. Subjective: F/U encephalopathy. Patient asks why she is in the hospital and where is her . No acute pain complaints. Objective: Vital Signs Temp Pulse Resp BP Pulse Ox 37.0 C 92 18 129/83 H 96 07/25/17 16:00 07/25/17 16:00 07/25/17 16:00 07/25/17 16:00 07/25/17 16:00 Laboratory Results 07/25/17 04:40 07/25/17 04:40 07/24/17 07/25/17 07/26/17 05:59 05:59 05:59 Intake Total 2000 Output Total 375 Balance 1625 - Physical Exam Constitutional: no apparent distress, not in pain Cardiovascular: regular rate and rhythym, no murmur, rub, or gallop Respiratory: no respiratory distress, no rales or rhonchi Gastrointestinal: normoactive bowel sounds, soft, non-tender abdomen Genitourinary: barnett in urethra Skin: warm, normal color Neurologic: No AAOx3 ICD10 Worksheet Patient Problems: Problems Problem Status Onset Medication overdose Acute Obtundation Acute Rhabdomyolysis Acute Altered mental status Acute Anxiety Acute Depression Acute Diarrhea Acute Encephalopathy acute Acute Medication side effect Acute Psychosis Acute Urinary tract infection Acute
--- NOTE | 2017-07-25 17:13 | ASMTCMCOM ---
CM Note CM Note Notes: 76 year old female admitted for medication OD, Rhabdo, AMS. Has a hx of prior OD, In-pt psych, ER visits; hx of chronic pain, lumbar spinal surgery, ETOH, depression, anxiety. EMS reports feces in the home and on patient's back brace. reports that he usually just lets her sleep it off. Need to wait until patient more awake to talk to her about above details. CM to follow. Date Signed: 07/25/2017 05:13 PM Electronically Signed By:Cici Garsia LCSW
[2017-07-25] MEDS: ACETAMINOPHEN 325 MG TAB PO PRN (19:34)
[2017-07-25] MEDS ORDERED: GABAPENTIN 300 MG CAP PO SCH (22:00)
[2017-07-25] MEDS: HYDROCODONE/APAP 5/325 TAB PO PRN (22:02)
[2017-07-26] MEDS: ACETAMINOPHEN 325 MG TAB PO PRN (06:07)
[2017-07-26] MEDS: HYDROCODONE/APAP 5/325 TAB PO PRN ×5 (06:07→23:20)
[2017-07-26 06:09] LABS: PLATELET COUNT 313 10^3/uL (150-400)
[2017-07-26 06:17] LABS: CREATINE KINASE 728 IU/L (0-156)
[2017-07-26] MEDS: cefTRIAXone 1 GM in STERILE WATER INJ 10 ML IV SCH (08:04)
[2017-07-26] MEDS: ENOXAPARIN 40 MG/0.4 ML SYR SC SCH (08:04)
[2017-07-26] MEDS: POTASSIUM CL 20 MEQ/15 ML UDCUP PO SCH (11:24)
--- NOTE | 2017-07-26 14:39 | PDINTPN ---
Corporate Director Of Pharmacy Progress Note Assessment/Plan: Assessment/plan: 76 F with chronic back pain treated with gabapentin, norco, and robaxin with issues of accidental OD in the past admitted 07/24/16 with obtundation. She was apparently found down after >24 hrs as reported frequent somnolence that usually "sleeps off." Although there was speculation about "hidden amitryptilline" her tox screen was positive for opiates. There was reportedly minimal to no response to narcan in the ED (details unknown) but her EKG showed no change in chronic prolonged QRS compared to 2013. She was treated conservatively (no HCO3) and cleared. * Medication OD- clearly states today this was accidental and NOT suicide attempt or ideation. Would consider alternative medication or supervised usage only since this sounds like a recurrent problem. * UTI?- trace LE on UA only but no wbcs. I would favor dc CTX and observe WBC * Rhabdo- very mild and decreasing CK- no further niño * Hypoxemia- resolved and now 95% RA Subjective: Feels much better today and wide awake Objective: Vital Signs Temp Pulse Resp BP Pulse Ox 36.6 C 72 18 127/68 H 99 07/26/17 08:00 07/26/17 08:33 07/26/17 08:00 07/26/17 08:33 07/26/17 08:33 Laboratory Results 07/26/17 05:55 07/26/17 05:55 07/25/17 07/26/17 07/27/17 05:59 05:59 05:59 Intake Total 1999 1790 Output Total 375 375 Balance 1625 1415 Physical Exam - Physical Exam General Appearance: WD/WN, alert, no apparent distress EENT: PERRL/EOMI Neck: supple Respiratory: lungs clear, normal breath sounds, No respiratory distress, No accessory muscle use Cardiac/Chest: regular rate, rhythm, No edema Abdomen: non-tender, soft, No distended Skin: normal color, warm/dry, No cyanosis Lymphatic: no adenopathy Extremities: No pedal edema Neuro/Psych: alert, normal mood/affect, oriented x 3 ICD10 Worksheet Patient Problems: Problems Problem Status Onset Medication overdose Acute Obtundation Acute Rhabdomyolysis Acute Altered mental status Acute Anxiety Acute Depression Acute Diarrhea Acute Encephalopathy acute Acute Medication side effect Acute Psychosis Acute Urinary tract infection Acute
[2017-07-26] MEDS: GABAPENTIN 300 MG CAP PO SCH ×2 (15:40→23:20)
--- NOTE | 2017-07-26 19:12 | ASMTCMCOM ---
CM Note CM Note Notes: Patient awake and alert today reporting that she couldn't get a hold of her and wondered if he was mad at her. She reports that he is very hard of hearing and wasn't answering the phone. This CM called for a welfare check, the police went out and found him OK and let him know that his and hospital were wanting to talk to him. Patient received a call from her and he told her he didn't want her to return home. When asked who she could lean on for support, she said she had a sister in [place] and a daughter in [place], her son is estranged. Spoke to sister Sujey who couldn't assist-she cares for her 80 yr old . Left message for patient's daughter, Love Ortega [phone] to call this CM re: DC Plans. Patient very tearful, didn't know what happened to her, reports that her locks up her medications and only gives them when ordered. She reports remembering that she was in a lot of pain. Patient had back surgery went to [facility] for rehab then went home with [facility]. Spoke to her HC PT-Lilia who reported that home was picked up, that patient complianed of 8-10 pain but didn't move like she was in pain. Moved well up and down stairs and there were 5 flts. Therapies recommending SNF Rehab. We talked about her need for an attorney law clerk and thoughts about were to live after she goes to rehab. Date Signed: 07/26/2017 07:12 PM Electronically Signed By:Cici Garsia LCSW
--- NOTE | 2017-07-26 21:51 | HOSPPROG ---
Hospitalist Progress Note Assessment/Plan: #. Encephalopathy - likely related to overdose of medications. She denies any suicidal intent. She is much more clear today but asking for more [place]. I recommend we adjust gabapentin to 300 TID from 1800 QHS. I've adjust [place] to 5 /325 1-1 1/2 tablets. She was using 10mg tablets at home. #. Rhabdomyolysis - continue IVF's. Trending down CPK. #. Elevated troponin - asymptomatic. Possible demand ischemia. #. Leukocytosis - Resolved today. UA suggestive of infection but now that more clear she does not describe any symptoms suggestive of UTI. Stop Ceftriaxone at this time. #. Hypernatremia - adjust IVF's to D5 1/2 NS. Improved and now WNL. Likely could stop IVF's tomorrow. #. Hypokalemia - continue potassium supplementation. #. Depression - case with discussed with case management and Dr. Arrieta with psychiatry today. I requested psychiatric consult in light of depression and anxiety history which is currently untreated and doubtful that we can get her pain controlled with untreated depression and/or anxiety. #. Chronic LBP - gabapentin used as outpatient. Dose adjusted today. #. Bowel/bladder - d/c barnett. Bowel regimen if constipation develops. #. Dispo - await PT/OT/ST evaluations. Subjective: F/U encephalopathy. Patient reports that her called and does not want her back in the house. The patient admits she is weak and hopeful that she can get into the same rehab facility she was in recently after her back surgery. Objective: Vital Signs Temp Pulse Resp BP Pulse Ox 36.8 C 83 18 182/79 H 97 07/26/17 21:36 07/26/17 21:36 07/26/17 21:36 07/26/17 21:36 07/26/17 21:36 Laboratory Results 07/26/17 05:55 07/26/17 05:55 07/25/17 07/26/17 07/27/17 05:59 05:59 05:59 Intake Total 1999 1790 1155 Output Total 375 375 Balance 1625 1415 1155 - Physical Exam Constitutional: no apparent distress Cardiovascular: regular rate and rhythym, no murmur, rub, or gallop Respiratory: no respiratory distress, no rales or rhonchi Gastrointestinal: normoactive bowel sounds, soft, non-tender abdomen Neurologic: AAOx3 ICD10 Worksheet Patient Problems: Problems Problem Status Onset Medication overdose Acute Obtundation Acute Rhabdomyolysis Acute Altered mental status Acute Anxiety Acute Depression Acute Diarrhea Acute Encephalopathy acute Acute Medication side effect Acute Psychosis Acute Urinary tract infection Acute
[2017-07-27] MEDS: HYDROCODONE/APAP 5/325 TAB PO PRN ×5 (05:07→21:42)
[2017-07-27 05:39] LABS: PLATELET COUNT 308 10^3/uL (150-400)
[2017-07-27 06:09] LABS: CREATINE KINASE 464 IU/L (0-156)
[2017-07-27] MEDS: ENOXAPARIN 40 MG/0.4 ML SYR SC SCH (08:53)
[2017-07-27] MEDS: GABAPENTIN 300 MG CAP PO SCH ×3 (08:54→21:43)
[2017-07-27] MEDS: POTASSIUM CL 20 MEQ/15 ML UDCUP PO SCH (08:54)
[2017-07-27] MEDS ORDERED: SERTRALINE HCL 25 MG TAB PO ONE (15:51)
[2017-07-27] MEDS ORDERED: SERTRALINE HCL 25 MG TAB PO SCH (16:00)
--- NOTE | 2017-07-27 17:37 | HOSPPROG ---
Hospitalist Progress Note Assessment/Plan: # Encephalopathy - likely related to overdose of medications- patient is clear on my exam today. CT head (personally reviewed and interpreted) no acute findings- oxygen saturations 95% on RA - continue gabapentin to 300 TID from 1800 QHS. - cont [place] to 5/325 1-1 1/2 tablets. (She was using 10mg tablets at home) - no amitriptyline # Depression - case with discussed with case management and Dr. Arrieta with psychiatry today- We both agree pt with baseline addictive tendency and clear depression - She denies any suicidal intent - starting zoloft 12.5mg today - uptitrate to 25mg tomorrow # Rhabdomyolysis - dc IVF's. Trending down CPK. # Elevated troponin - asymptomatic. Possible demand ischemia- no inpatient work up # Leukocytosis - Resolved today # Hypernatremia - resolved Na 144 # Hypokalemia - continue potassium supplementation. # Chronic LBP - gabapentin used as outpatient. Dose adjusted # Bowel/bladder - d/c barnett. Bowel regimen prn #. Dispo - planning on dc tomorrow to [facility] rehab I have discussed the case with Dr. Arrieta and CM - starting zoloft today - dc tomorrow Subjective: back pain Objective: Vital Signs Temp Pulse Resp BP Pulse Ox 36.8 C 83 18 171/83 H 97 07/27/17 16:08 07/27/17 16:08 07/27/17 16:08 07/27/17 16:08 07/27/17 16:08 Laboratory Results 07/27/17 04:54 07/27/17 04:54 07/26/17 07/27/17 07/28/17 05:59 05:59 05:59 Intake Total 1790 1755 Output Total 375 Balance 1415 1755 - Physical Exam Constitutional: chronically ill appearing Eyes: anicteric sclera Ears, Nose, Mouth, Throat: moist mucous membranes Cardiovascular: regular rate and rhythym Respiratory: no respiratory distress Gastrointestinal: normoactive bowel sounds Genitourinary: no bladder fullness Skin: warm Musculoskeletal: No asymmetric calves Neurologic: AAOx3 Psychiatric: interacting appropriately, No agitated Lymph, Heme, Immunologic: no cervical LAD ICD10 Worksheet Patient Problems: Problems Problem Status Onset Medication overdose Acute Obtundation Acute Rhabdomyolysis Acute Altered mental status Acute Anxiety Acute Depression Acute Diarrhea Acute Encephalopathy acute Acute Medication side effect Acute Psychosis Acute Urinary tract infection Acute
--- NOTE | 2017-07-27 18:09 | ASMTCMCOM ---
CM Note CM Note Notes: Patient had her psych consult today with Dr. Arrieta. Dr. Arrieta states patient does not meet criteria for an M1 hold. Dr. Arrieta does feel patient is experiencing clinical depression and has added Zoloft to her medication regimen. Dr. Arrieta has discussed her recommendations with Dr. Stanton. Dr. Arrieta would also like a cognitive eval on patient completed before she goes. She would like [facility] to support patient with any cognitive therapy that might be available. Spoke with patient's who states patient has a long history with Generalized Anxiety Disorder and has seen Dr. Shira Mackenzie as her psychiatrist. Mr. Contreras feels patient's main problem right now is arthritis and her pain not being controlled. A release of information was obtained and is in the patient's chart. The release will need to be faxed to Dr. Mackenzie's office tomorrow. Her fax number is not listed online, her office number is [phone]. Her office was closed when we called today. Dr. Arrieta plans to make a courtesy call to Dr. Mackenzie to coordinate patient's outpatient care. Spoke with patient's daughter today as well. She was informed patient will go to [facility] tomorrow for rehab. Patient does not have any clothes and we got her some temporary ones here in the hospital. Patient reports her will not bring her any.Patient's daughter agreed to talk to her dad about this and mail her mother some clothes if he continues to refuse to bring her clothes. Daughter Rashmi also states she plans to talk to her father about realistic expectations for the upcoming trip to [place]. Spoke with [facility] and they are ready for patient tomorrow. They will set up transport for patient after we call them in the morning to confirm final details. Spoke with patient today who is moving fairly well and is ready to go to rehab. Patient was also in agreement with the Zoloft being added to her medication regimen. Discharge tomorrow before noon if possible. CM will follow. Date Signed: 07/27/2017 06:09 PM Electronically Signed By:Meghan Santiago LCSW
[2017-07-28] MEDS: HYDROCODONE/APAP 5/325 TAB PO PRN ×5 (01:57→18:06)
[2017-07-28 03:57] VITALS: RESP 18
[2017-07-28 04:03] LABS: PLATELET COUNT 328 10^3/uL (150-400)
[2017-07-28 04:15] LABS: CREATINE KINASE 244 IU/L (0-156)
[2017-07-28 07:58] VITALS: BP 152/82; PULSE 77; TEMP 98.2; O2SAT 93
[2017-07-28] MEDS: GABAPENTIN 300 MG CAP PO SCH ×2 (08:20→16:20)
[2017-07-28] MEDS: POTASSIUM CL 20 MEQ/15 ML UDCUP PO SCH (08:20)
[2017-07-28] MEDS: ENOXAPARIN 40 MG/0.4 ML SYR SC SCH (08:20)
[2017-07-28] MEDS ORDERED: SERTRALINE HCL 25 MG TAB PO SCH (09:00)
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
--- NOTE | 2017-07-28 10:10 | PDIAF ---
- Diagnosis Diagnosis: encephalopathy Code Status: Full Code - Medication Management Discharge Medications: Medications to Continue on Transfer Acetaminophen [Tylenol 325mg (*)] 650 mg PO Q4HRS PRN tab 07/28/17 [Last Taken Unknown] Gabapentin [Neurontin 300 MG (*)] 300 mg PO TID cap 07/28/17 [Last Taken Unknown] Hydrocodone/APAP 5/325 [[place] 5/325 (*)] 1 - 1.5 tab PO Q4HRS PRN tab 07/28/17 [Last Taken Unknown] Sertraline HCl [Zoloft 25mg (*)] 25 mg PO DAILY tab 07/28/17 [Last Taken Unknown] Discharge Medications: Refer to the Discharge Home Medication list for PRN reason. - Orders Services needed: Registered Nurse, Physical Therapy, Occupational Therapy Isolation Type: None Diet Texture: Regular Texture Diet, Thin Liquids, Meds Whole w/Liquids - Follow Up Care Current Providers and Referrals: Sera Pittman MD [Primary Care Provider] - As per Instructions
--- NOTE | 2017-07-28 12:52 | PDIAF ---
- Diagnosis Diagnosis: encephalopathy Code Status: Full Code - Medication Management Discharge Medications: Medications to Continue on Transfer Acetaminophen [Tylenol 325mg (*)] 650 mg PO Q4HRS PRN tab 07/28/17 [Last Taken Unknown] Gabapentin [Neurontin 300 MG (*)] 300 mg PO TID cap 07/28/17 [Last Taken Unknown] Hydrocodone/APAP 5/325 [[place] 5/325 (*)] 1 - 1.5 tab PO Q4HRS PRN tab 07/28/17 [Last Taken Unknown] Sertraline HCl [Zoloft 25mg (*)] 25 mg PO DAILY tab 07/28/17 [Last Taken Unknown] Discharge Medications: Refer to the Discharge Home Medication list for PRN reason. - Orders Services needed: Registered Nurse, Physical Therapy, Occupational Therapy, Speech Language Pathologist Isolation Type: None Diet Texture: Regular Texture Diet, Thin Liquids, Meds Whole w/Liquids - Follow Up Care Current Providers and Referrals: Sera Pittman MD [Primary Care Provider] - As per Instructions Shira Mackenzie [Non Staff Provider ()] -
--- NOTE | 2017-07-28 16:46 | PDIAF ---
- Diagnosis Diagnosis: encephalopathy Code Status: Full Code - Medication Management Discharge Medications: Medications to Continue on Transfer Acetaminophen [Tylenol 325mg (*)] 650 mg PO Q4HRS PRN tab 07/28/17 [Last Taken Unknown] Gabapentin [Neurontin 300 MG (*)] 300 mg PO TID cap 07/28/17 [Last Taken Unknown] Hydrocodone/APAP 5/325 [[place] 5/325 (*)] 1 - 1.5 tab PO Q4HRS PRN tab 07/28/17 [Last Taken Unknown] Sertraline HCl [Zoloft 25mg (*)] 25 mg PO DAILY tab 07/28/17 [Last Taken Unknown] Discharge Medications: Refer to the Discharge Home Medication list for PRN reason. - Orders Services needed: Home Care, Registered Nurse, Master Comparator Operator, Physical Therapy, Occupational Therapy, Speech Language Pathologist Home Care Face to Face: I certify that this patient was under my care and that I had the required [id number] encounter meeting the encounter requirements on the discharge day. My findings support the fact that the patient is homebound as defined in Home Care Face to Face Continued: CMS Chapter 7 Medicare Benefits Manual 30.1.1 , The condition of the patient is such that there exists a normal inability to leave home and consequently, leaving home would require a considerable and taxing effort. Isolation Type: None Diet Texture: Regular Texture Diet, Thin Liquids, Meds Whole w/Liquids - Follow Up Care Current Providers and Referrals: Shira Mackenzie [Non Staff Provider (MD)] - Sera Pittman MD [Primary Care Provider] - As per Instructions
--- NOTE | 2017-07-28 23:45 | GDS ---
[f rep st] DISCHARGE SUMMARY DISCHARGE DIAGNOSES: 1. Acute encephalopathy thought secondary to medications. 2. Unintentional prescription drug overdose. 3. Chronic pain with continuous narcotic dependency. 4. Depression. 5. Rhabdomyolysis. HISTORY OF PRESENT ILLNESS: A 76-year-old female with a history of chronic pain and continuous narco tic use with previous hospitalizations for encephalopathy from polypharmacy, who re-presents encephal opathic. Patient was thought to have been down for a long period of time. CONSULTATIVE SERVICES: Psychiatry. PROCEDURES: None. HOSPITAL COURSE: By issue: 1. Unintentional medication overdose. It sounds as if the patient had suboptimal pain control and u nintentionally took large amounts of amitriptyline, which was no longer an active medication on her l ist. Patient presented encephalopathic, required supportive care and monitoring. On the day of her disposition, she is mentating normally and has had her medications for chronic pain titrated to allow more safe use and decrease use of tricyclics and narcotics. 2. Chronic pain. Patient has had her regimen changed to include gabapentin 300 mg t.i.d., which is a dose adjustment rather than high doses at bedtime. Low-dose [place]io p.r.n. for pain. Patient is to follow in the outpatient setting with her chronic primary care provider for ongoing management of her chronic pain complaints. 3. Depression. Patient was evaluated by Psychiatry and felt that she did display symptoms consisten t with untreated depression, which were questionably confounding her experience with pain. Patient w as initiated on Zoloft therapy 12.5 mg up titrated to 25 during this hospital stay. She is being dis charged on 25 mg of Zoloft to be continued daily and up titrated by her outpatient psychiatrist, Dr. Mackenzie, in the outpatient setting. MEDICATIONS AT THE TIME OF DISPOSITION: Please reference the med rec printed on 07/28/2017. FOLLOWUP APPOINTMENTS: 1. Include with her primary care provider in the next 1-2 days for her first post disposition follow up and a re-evaluation of her ongoing pain management. Patient has additionally been discharged with home health services to assist and vital sign checks and medication administration. 2. With her outpatient psychiatrist, Dr. Mackenzie, for ongoing management of her newly initiated Zoloft therapy and the appropriate up titration of that medication in the outpatient setting. It should be noted the patient was assessed by Physical Therapy at [facility] and felt most appropr iate for jail. Patient was refused by the only jail facility she would accept going to secondary to her previous noncompliance in disposition during her previous jail s tu. Patient is refusing to consider other jail facilities. Patient is being discharged home with nursing support, home physical therapy, home occupational therapy, speech therapy for cogni tive evaluation, and 7th grade social studies teacher to assist in ongoing needs after disposition. TIME SPENT: I spent greater than 30 minutes in the planning and coordination of this discharge. /[id number]/MODL
== END 2017-07-28 18:30 | DRG 917 ==
LOC: EDUNIT# → F2N 23:35 → F1N 07-26 21:29
PROVIDERS: ADMIT Student in an Organized Health Care Education/Training Program; ATTEND Hospitalist
DX: T43.011A Poisoning by tricyclic antidepressants, accidental (unintentional), initial encounter (principal); G92 Toxic encephalopathy; F33.2 Major depressive disorder, recurrent severe without psychotic features; M62.82 Rhabdomyolysis; E87.0 Hyperosmolality and hypernatremia; E87.6 Hypokalemia; G89.29 Other chronic pain; F11.20 Opioid dependence, uncomplicated; R09.02 Hypoxemia; F10.21 Alcohol dependence, in remission; F03.90 Unspecified dementia, unspecified severity, without behavioral disturbance, psychotic disturbance, mood disturbance, and anxiety; Z63.0 Problems in relationship with spouse or partner; Z87.440 Personal history of urinary (tract) infections; Z98.1 Arthrodesis status
CPT/HCPCS: 80305; 82607-90; 82947-QW; 92526-GN; 92610-GN; 96374; 97116-GP; 97161-GP; 97166-GO; 97530-GO; G0480; G8978-GP-CJ; G8979-GP-CI; G8987-GO-CI; G8988-GO-CI; G8996-GN-CH; G8996-GN-CI; G8997-GN-CH; G8998-GN-CH; J0696; J1650; J2060; J2310

== ENCOUNTER → 2017-11-15 | Outpatient (CLI) | payer OTHER, MEDICARE | LOC: FIMAGING 15:22 | PROVIDERS: ATTEND Physician Assistant | DX: Z09 Encounter for follow-up examination after completed treatment for conditions other than malignant neoplasm (principal); Z98.1 Arthrodesis status ==

== ENCOUNTER 2017-12-15 18:46 | Emergency (ER) | payer OTHER, MEDICARE ==
--- NOTE | 2017-12-15 19:24 | CPEKG ---
Heart Rate: 77 RR Interval: 779 P-R Interval: 160 QRSD Interval: 130 QT Interval: 448 QTC Interval: 508 P Liberty: 58 QRS [place]: -44 T Wave [place]: 120 EKG Severity - ABNORMAL ECG - EKG Impression: SINUS RHYTHM EKG Impression: LEFT BUNDLE BRANCH BLOCK Electronically Signed By: Rivas Morton 15-Dec-2017 20:25:54
[2017-12-15 19:40] LABS: PLATELET COUNT 362 10^3/uL (150-400)
--- NOTE | 2017-12-15 19:51 | EDPHY ---
H & P Time Seen by Provider: 12/15/17 19:33 HPI/ROS: Chief complaint. Abdominal pain HPI. 76-year-old female presents with abdominal pain for 4 days. She notes upper abdominal pain that she describes as indigestion and described as burning and she has had this for 5 days. She had nausea without vomiting. No radiation to her back. She has fullness and pressure to both sides of her lower abdomen for 2-3 days again without radiation. No fever. She has urinary frequency. No chest discomfort or shortness of breath. Patient has chronic pain and is in pain management program ROS Constitutional. no fever/chills, no weakness Eyes. no problems with vision ENT. no sore throat, no nasal drainage Cardiovascular. no chest pain Respiratory. no shortness of breath, no cough Abdominal. Abdominal pain with nausea . no problems urinating MS. no calf pain/swelling, no neck/back pain, no joint pain Skin. no rash Lymph. no swollen glands Neuro. no headache, no dizziness, no difficulty walking or with speech Past Medical/Surgical History: Chronic neck and back pain with multiple surgeries, cholecystectomy, alcoholism Social History: , nonsmoker, no alcohol Smoking Status: Never smoked Physical Exam: General Appearance: Alert well-developed female mild distress vital signs are stable Eyes: Pupils equal and round no pallor or injection. ENT, Mouth: Mucous membranes are moist. Respiratory: There are no retractions, lungs are clear to auscultation. Cardiovascular: Regular rate and rhythm. Gastrointestinal: Abdomen is soft and mildly tender in the low abdomen and in the epigastrium. Normal bowel sounds. No masses. Neurological: Awake and alert, sensory and motor exams grossly normal. Skin: Warm and dry, no rashes. Musculoskeletal: Neck is supple nontender. Extremities symmetrical, full range of motion. Psychiatric: Patient is oriented X 3, there is no agitation. Constitutional: Initial Vital Signs Temperature (C) 36.7 C 12/15/17 18:50 Heart Rate 79 12/15/17 18:50 Respiratory Rate 18 12/15/17 18:50 Blood Pressure 153/102 H 12/15/17 18:50 O2 Sat (%) 96 12/15/17 18:50 O2 Delivery Mode Room Air Allergies/Adverse Reactions: promethazine Allergy (Unknown, Verified 06/04/17 11:49) Anxiety Home Medications: Medication Instructions Recorded Acetaminophen [Tylenol 325mg (*)] 650 mg PO Q4HRS PRN tab 07/28/17 Gabapentin [Neurontin 300 MG (*)] 300 mg PO TID cap 07/28/17 Hydrocodone/APAP 5/325 [[place] 1 - 1.5 tab PO Q4HRS PRN tab 07/28/17 5/325 (*)] Medical Decision Making - Diagnostics Imaging Results: Imaging Impressions Abdomen CT 12/15/17 20:08 Impression: 1. No acute intra-abdominal pathology. 2. Extensive diverticulosis. No evidence of acute diverticulitis. 3. Normal appendix. No renal calculi. Postcholecystectomy. Findings were communicated by telephone with Dr. TIFFANY HUSSEIN at 12/15/2017 21 :12 CT abdomen and pelvis with IV contrast reviewed by me and discussed with Dr. Gardner shows no pathology. I asked Dr. Gardner about constipation and stool and sounds like there is not much evidence for constipation Procedures: IV normal saline ED Course/Re-evaluation: Re-evaluation 9:40 p.m. Patient is stable. Patient, her , and I discussed imaging and lab results. We discussed treatment plan including criteria for return importance of follow-up and further evaluation. They expressed understanding and agreement Differential Diagnosis: I do not find any evidence of acute abdomen. Patient has had 4 days of abdominal pain and now has a normal workup. I think she can be safely treated as an outpatient. No evidence for diverticulitis, appendicitis, urinary tract infection, kidney stone - Data Points Laboratory Results: Laboratory Results 12/15/17 19:19 12/15/17 19:19 12/15/17 12/15/17 12/15/17 20:17 19:19 19:19 WBC 7.52 10^3/uL 10^3/uL (3.80-9.50) RBC 4.85 10^6/uL 10^6/uL (4.18-5.33) Hgb 14.6 g/dL g/dL (12.6-16.3) Hct 44.4 % % (38.0-47.0) MCV 91.5 fL fL (81.5-99.8) MCH 30.1 pg pg (27.9-34.1) MCHC 32.9 g/dL g/dL (32.4-36.7) RDW 13.5 % % (11.5-15.2) Plt Count 362 10^3/uL 10^3/uL (150-400) MPV 9.5 fL fL (8.7-11.7) Neut % (Auto) 61.5 % % (39.3-74.2) Lymph % (Auto) 27.8 % % (15.0-45.0) [place] % (Auto) 8.0 % % (4.5-13.0) Eos % (Auto) 1.7 % % (0.6-7.6) Baso % (Auto) 0.7 % % (0.3-1.7) Nucleat RBC Rel Count 0.0 % % (0.0-0.2) Absolute Neuts (auto) 4.63 10^3/uL 10^3/uL (1.70-6.50) Absolute Lymphs (auto) 2.09 10^3/uL 10^3/uL (1.00-3.00) Absolute Monos (auto) 0.60 10^3/uL 10^3/uL (0.30-0.80) Absolute Eos (auto) 0.13 10^3/uL 10^3/uL (0.03-0.40) Absolute Basos (auto) 0.05 10^3/uL 10^3/uL (0.02-0.10) Absolute Nucleated RBC 0.00 10^3/uL 10^3/uL (0-0.01) Immature Gran % 0.3 % % (0.0-1.1) Immature Gran # 0.02 10^3/uL 10^3/uL (0.00-0.10) Sodium 145 mEq/L mEq/L (135-145) Potassium 4.2 mEq/L mEq/L (3.3-5.0) Chloride 106 mEq/L mEq/L (97-110) Carbon Dioxide 24 mEq/l mEq/l (22-31) Anion Gap 15 mEq/L mEq/L (8-16) BUN 18 mg/dL mg/dL (7-23) Creatinine 0.9 mg/dL mg/dL (0.6-1.0) Estimated GFR > 60 Glucose 89 mg/dL mg/dL (70-100) Calcium 10.3 mg/dL mg/dL (8.5-10.4) Total Bilirubin 0.9 mg/dL mg/dL (0.1-1.4) Conjugated Bilirubin 0.3 mg/dL mg/dL (0.0-0.5) Unconjugated Bilirubin 0.6 mg/dL mg/dL (0.0-1.1) AST 35 IU/L IU/L (14-46) ALT 41 IU/L IU/L (9-52) Alkaline Phosphatase 98 IU/L IU/L (38-126) Total Protein 8.0 g/dL g/dL (6.3-8.2) Albumin 5.0 g/dL g/dL (3.5-5.0) Lipase 73 IU/L IU/L (23-300) Urine Color YELLOW Urine Appearance CLEAR Urine pH 5.0 (5.0-7.5) Ur Specific [place] 1.026 (1.002-1.030) Urine Protein NEGATIVE (NEGATIVE) Urine Ketones 1+ H (NEGATIVE) Urine Blood 1+ H (NEGATIVE) Urine Nitrate NEGATIVE (NEGATIVE) Urine Bilirubin NEGATIVE (NEGATIVE) Urine Urobilinogen NEGATIVE EU EU (0.2-1.0) Ur Leukocyte Esterase NEGATIVE (NEGATIVE) Urine RBC 5-10 /hpf H /hpf (0-3) Urine WBC 1-3 /hpf /hpf (0-3) Ur Epithelial Cells TRACE /lpf /lpf (NONE-1+) Urine Mucus TRACE /lpf /lpf (NONE-1+) Urine Glucose NEGATIVE (NEGATIVE) Medications Given: Discontinued Medications Sodium Chloride (Ns) 1,000 mls @ 0 mls/hr IV EDNOW ONE; Wide Open PRN Reason: Protocol Stop: 12/15/17 20:08 Last Admin: 12/15/17 20:23 Dose: 1,000 mls Departure - Departure Disposition: Home, Routine, Self-Care Clinical Impression: Abdominal pain Condition: Good Instructions: Abdominal Pain (ED) Additional Instructions: Continue regular medications. Return for worsening symptoms. Recheck in 1-2 days without fail for further evaluation Referrals: Sera Pittman MD [Primary Care Provider] - 1-2 days without fail
[2017-12-15] MEDS ORDERED: NS 1,000 ML IV ONE (20:07)
[2017-12-15] MEDS ORDERED: IOPAMIDOL (ISOVUE-300) 100 ML BTL ONE (20:21)
[2017-12-15 21:49] VITALS: BP 174/73
== END 2017-12-15 21:48 | disposition home or self-care (01) ==
DX: R10.13 Epigastric pain (principal); E86.9 Volume depletion, unspecified
CPT/HCPCS: 74177; 93005; 96360; 99285; Q9967

== ENCOUNTER 2018-10-20 10:40 | Inpatient (IN) | payer OTHER, MEDICARE ==
[2018-10-20 11:25] LABS: PLATELET COUNT 351 10^3/uL (150-400)
[2018-10-20] MEDS ORDERED: NS 500 ML IV ONE (11:41)
[2018-10-20] MEDS ORDERED: IOPAMIDOL (ISOVUE-300) 100 ML BTL ONE (11:47)
--- NOTE | 2018-10-20 11:59 | EDPHY ---
H & P Stated Complaint: abd pain starting last evening Time Seen by Provider: 10/20/18 11:42 HPI/ROS: CHIEF COMPLAINT: Abdominal pain HISTORY OF PRESENT ILLNESS: 77-year-old female with chronic pain presents with lower abdominal pain. Onset of right lower quadrant pain yesterday evening. The pain has now migrated to the suprapubic area. The pain is constant, moderate and associated with abdominal bloating and decreased oral intake. No known fever and no chills. No alleviating or aggravating factors. No urinary symptoms, vomiting or diarrhea/constipation or black/bloody stool. REVIEW OF SYSTEMS: complete 10 point ROS reviewed and is negative except for the noted elements in the HPI - Personal History Current Tetanus Diphtheria and Acellular Pertussis (TDAP): Yes Tetanus Vaccine Date: 2010 - Medical/Surgical History Hx Asthma: No Hx Chronic Respiratory Disease: No Hx Diabetes: No Hx Cardiac Disease: No Hx Renal Disease: No Hx Cirrhosis: No Hx Alcoholism: Yes Hx HIV/AIDS: No Hx Splenectomy or Spleen Trauma: No Other PMH: Cholecystectomy, knee surgery, spinal fusion. Chronic back pain. etoh abuse. multiple admissions for delusions and confusion, OD'S - Social History Smoking Status: Never smoked Alcohol Use: Sober Drug Use: None - Physical Exam Exam: General Appearance: Alert, difficult to obtain history Eyes: Pupils equal and round, 2 mm, no conjunctival pallor or injection ENT, Mouth: Mucous membranes moist Neck: Normal inspection Respiratory: Lungs are clear to auscultation Cardiovascular: Regular rate and rhythm Gastrointestinal: Abdomen is soft, distended, mild suprapubic and right lower quadrant tenderness Neurological: A&O, nonfocal exam Skin: Warm and dry Extremities: Normal inspection Psychiatric: Flat affect Constitutional: Initial Vital Signs Temperature (C) 37.2 C 10/20/18 10:45 Heart Rate 77 10/20/18 10:45 Respiratory Rate 14 10/20/18 10:45 Blood Pressure 199/83 H 10/20/18 10:45 O2 Sat (%) 93 10/20/18 10:45 O2 Delivery Mode Room Air Allergies/Adverse Reactions: promethazine Allergy (Unknown, Verified 10/20/18 10:48) Anxiety Home Medications: Medication Instructions Recorded Gabapentin [Neurontin 300 MG (*)] 300 mg PO TID cap 07/28/17 HYDROcodone/APAP 10/325 [[place] 1 tab PO Q4HRS PRN 10/20/18 10/325 (*)] Medical Decision Making - Diagnostics Imaging Results: Imaging Impressions Abdomen CT 10/20/18 11:42 Impression: 1. Descending/sigmoid colitis may be of ischemic, infectious, or inflammatory nature. 2. Development of bilateral periimplant gas without other evidence of infection. This finding can be seen in high altitudes, though correlation with recent surgery or implant rupture is recommended. Elsa Suarez was notified of these findings by telephone at 1:02 PM on 10/20/2018 Imaging: Discussed imaging studies w/ call center professional Radiologist, I viewed and interpreted images myself ED Course/Re-evaluation: This patient presents with severe diffuse abdominal pain. Abd exam reveals no evidence of peritonitis. Concern for serious intra-abdominal process, given severity of pain. IV normal saline given for dehydration. CT scan of the abdomen pelvis obtained and reveals diffuse colitis the sigmoid colon, suggestive of ischemic colitis. Results discussed with the patient. Will require admission for observation and pain management. The hospitalist service was consulted for admission. Morphine and Zofran IV given for pain and nausea control with some relief. The patient was stable throughout her emergency department stay. Differential Diagnosis: Differential diagnosis includes though it is not limited to appendicitis, cholecystitis, diverticulitis, pyelonephritis, bowel perforation, small bowel obstruction. - Data Points Laboratory Results: Laboratory Results 10/20/18 10:58 10/20/18 10:58 10/20/18 10/20/18 10:58 10:58 WBC 19.30 10^3/uL H 10^3/uL (3.80-9.50) RBC 5.21 10^6/uL 10^6/uL (4.18-5.33) Hgb 15.7 g/dL g/dL (12.6-16.3) Hct 47.5 % H % (38.0-47.0) MCV 91.2 fL fL (81.5-99.8) MCH 30.1 pg pg (27.9-34.1) MCHC 33.1 g/dL g/dL (32.4-36.7) RDW 13.2 % % (11.5-15.2) Plt Count 351 10^3/uL 10^3/uL (150-400) MPV 9.6 fL fL (8.7-11.7) Neut % (Auto) 87.7 % H % (39.3-74.2) Lymph % (Auto) 6.9 % L % (15.0-45.0) [place] % (Auto) 4.7 % % (4.5-13.0) Eos % (Auto) 0.1 % L % (0.6-7.6) Baso % (Auto) 0.2 % L % (0.3-1.7) Nucleat RBC Rel Count 0.0 % % (0.0-0.2) Absolute Neuts (auto) 16.94 10^3/uL H 10^3/uL (1.70-6.50) Absolute Lymphs (auto) 1.33 10^3/uL 10^3/uL (1.00-3.00) Absolute Monos (auto) 0.90 10^3/uL H 10^3/uL (0.30-0.80) Absolute Eos (auto) 0.02 10^3/uL L 10^3/uL (0.03-0.40) Absolute Basos (auto) 0.04 10^3/uL 10^3/uL (0.02-0.10) Absolute Nucleated RBC 0.00 10^3/uL 10^3/uL (0-0.01) Immature Gran % 0.4 % % (0.0-1.1) Immature Gran # 0.07 10^3/uL 10^3/uL (0.00-0.10) Sodium 140 mEq/L mEq/L (135-145) Potassium 4.6 mEq/L mEq/L (3.5-5.2) Chloride 103 mEq/L mEq/L (97-110) Carbon Dioxide 25 mEq/l mEq/l (22-31) Anion Gap 12 mEq/L mEq/L (6-14) BUN 24 mg/dL H mg/dL (7-23) Creatinine 0.9 mg/dL mg/dL (0.6-1.0) Estimated GFR 60 Glucose 135 mg/dL H mg/dL (70-100) Calcium 9.9 mg/dL mg/dL (8.5-10.4) Medications Given: Discontinued Medications Sodium Chloride (Ns) 500 mls @ 1,000 mls/hr IV EDNOW ONE PRN Reason: Protocol Stop: 10/20/18 12:10 Last Admin: 10/20/18 12:19 Dose: 500 mls Departure - Departure Disposition: [facility] Acute Clinical Impression: Acute colitis Condition: Fair
[2018-10-20] MEDS ORDERED: ONDANSETRON 4 MG/2 ML VIAL IVP PRN (13:22)
[2018-10-20] MEDS ORDERED: ACETAMINOPHEN 325 MG TAB PO PRN (13:22)
[2018-10-20] MEDS ORDERED: ONDANSETRON 4 MG/2 ML VIAL IVP ONE (14:39)
[2018-10-20] MEDS: NS 1,000 ML IV SCH ×2 (16:13→23:37)
[2018-10-20] MEDS: HYDROmorphONE/DILAUDID 2 MG TAB PO PRN ×2 (16:31→21:48)
--- NOTE | 2018-10-20 17:19 | PDGENHP ---
History and Physical - Chief Complaint Abdominal Pain - History of Present Illness Nilam Contreras is a 77 yo F with a PMHx of chronic back pain who presents to [facility] for abdominal pain. Patient had sudden onset of lower abdominal pain, in both R and LLQ. She describes pain as constant, 8/10, associated with abdominal bloating, and nausea. She denies any hx of abdominal pain, BRBPR, melena, vomiting, hematemesis, SOB, chest pain, palpitations, f/c, edema, cough. She notes that she was in [place], [place] up until a few days ago as her was hospitalized for a foot infection and acquired C Diff at that time. She notes "soft" BMs recently, with last one yesterday, however denies diarrhea. History Information - Allergies/Home Medication List Allergies/Adverse Reactions: promethazine Allergy (Unknown, Verified 10/20/18 10:48) Anxiety Home Medications: HYDROcodone/APAP 10/325 [[place] 10/325 (*)] 1 tab PO Q4HRS PRN 10/20/18 [Last Taken 10/19/18 21:00] I have personally reviewed and updated: family history, medical history, social history, surgical history - Past Medical History dementia, psychiatric history (depression with psychotic features, prior psych hospitalizations) Additional medical history: etoh abuse--apparently in remission, though this has been claimed in the past as well and then later found out to be untrue. diverticulitis/osis. lumbar compression fx. chronic pain - Surgical History Reports: cholecystectomy, spinal surgery Additional surgical history: orthopedic surgeries. breast augmentation - Family History Additional family history: parents both with alcoholism - Social History Smoking Status: Never smoked Alcohol Use: Sober Drug Use: None Additional social history: 2 children Review of Systems Review of Systems: ROS: 10pt was reviewed & negative except for what was stated in HPI & below Physical Exam Physical Exam: Temp Pulse Resp BP Pulse Ox 37.2 C 77 16 173/68 H 95 10/20/18 15:53 10/20/18 15:53 10/20/18 15:53 10/20/18 15:53 10/20/18 15:53 Constitutional: uncomfortable Eyes: PERRL Ears, Nose, Mouth, Throat: dry mucous membranes Cardiovascular: regular rate and rhythym Respiratory: no respiratory distress Gastrointestinal: distension, No tenderness, No guarding, No rebound Genitourinary: No barnett in urethra Skin: warm Musculoskeletal: full muscle strength Neurologic: AAOx3 Psychiatric: anxious Lab Data & Imaging Review 10/20/18 10:58 10/20/18 10:58 WBC 19.30 10^3/uL (3.80-9.50) H 10/20/18 10:58 RBC 5.21 10^6/uL (4.18-5.33) 10/20/18 10:58 Hgb 15.7 g/dL (12.6-16.3) 10/20/18 10:58 Hct 47.5 % (38.0-47.0) H 10/20/18 10:58 MCV 91.2 fL (81.5-99.8) 10/20/18 10:58 MCH 30.1 pg (27.9-34.1) 10/20/18 10:58 MCHC 33.1 g/dL (32.4-36.7) 10/20/18 10:58 RDW 13.2 % (11.5-15.2) 10/20/18 10:58 Plt Count 351 10^3/uL (150-400) 10/20/18 10:58 MPV 9.6 fL (8.7-11.7) 10/20/18 10:58 Neut % (Auto) 87.7 % (39.3-74.2) H 10/20/18 10:58 Lymph % (Auto) 6.9 % (15.0-45.0) L 10/20/18 10:58 [place] % (Auto) 4.7 % (4.5-13.0) 10/20/18 10:58 Eos % (Auto) 0.1 % (0.6-7.6) L 10/20/18 10:58 Baso % (Auto) 0.2 % (0.3-1.7) L 10/20/18 10:58 Nucleat RBC Rel Count 0.0 % (0.0-0.2) 10/20/18 10:58 Absolute Neuts (auto) 16.94 10^3/uL (1.70-6.50) H 10/20/18 10:58 Absolute Lymphs (auto) 1.33 10^3/uL (1.00-3.00) 10/20/18 10:58 Absolute Monos (auto) 0.90 10^3/uL (0.30-0.80) H 10/20/18 10:58 Absolute Eos (auto) 0.02 10^3/uL (0.03-0.40) L 10/20/18 10:58 Absolute Basos (auto) 0.04 10^3/uL (0.02-0.10) 10/20/18 10:58 Absolute Nucleated RBC 0.00 10^3/uL (0-0.01) 10/20/18 10:58 Immature Gran % 0.4 % (0.0-1.1) 10/20/18 10:58 Immature Gran # 0.07 10^3/uL (0.00-0.10) 10/20/18 10:58 Sodium 140 mEq/L (135-145) 10/20/18 10:58 Potassium 4.6 mEq/L (3.5-5.2) 10/20/18 10:58 Chloride 103 mEq/L (97-110) 10/20/18 10:58 Carbon Dioxide 25 mEq/l (22-31) 10/20/18 10:58 Anion Gap 12 mEq/L (6-14) 10/20/18 10:58 BUN 24 mg/dL (7-23) H 10/20/18 10:58 Creatinine 0.9 mg/dL (0.6-1.0) 10/20/18 10:58 Estimated GFR 60 10/20/18 10:58 Glucose 135 mg/dL (70-100) H 10/20/18 10:58 Calcium 9.9 mg/dL (8.5-10.4) 10/20/18 10:58 Lactate Dehydrogenase 707 IU/L (313-618) H 10/20/18 11:00 Assessment & Plan Assessment: Acute colitis (Acute) - Presenting with 1 day of lower abdominal pain, no associated bleeding - CT A/P on admission showing descending/sigmoid colitis, ischemic vs. infectious vs. inflammatory, no evidence of pneumoperitoneum or pneumatosis, extensive diverticulosis identified, origins of SMA and ANGIE are wifely patent, no evidence of bowel obstruction - HD stable upon admission, mild distension on physical with no rebound, guarding, or significant tenderness, WBC 19.3 - Pt's with recent dx of C Diff, although patient does not endorse diarrhea - Will initiate Cipro/Flagyl, IVF, and PRN pain medication for now - If no improvement overnight will consider GI or surgical evaluation in the AM - Will placed NPO for now, IVF as above - Will order C Diff/ GI PCR to further evaluate given pt's recent illness HTN - Pt presenting with BP 177/87 in setting of pain - Will continue to monitor for now, not on antihypertensive meds at home Chronic Back Pain - Continue home pain medications including [place] and Gabapentin FEN: IVF, NPO DVT PPx: Lovenox Code: FULL Dispo: Admit to Observation
[2018-10-20] MEDS: metroNIDAZOLE 500 MG TAB PO SCH ×2 (18:12→21:39)
[2018-10-20] MEDS: CIPROFLOXACIN 500 MG TAB PO SCH ×2 (18:13→21:39)
[2018-10-20] MEDS: ONDANSETRON DISINTEGRATING 4 MG TAB PO PRN (18:20)
[2018-10-20] MEDS: HYDROCODONE/APAP 10/325 TAB PO PRN ×2 (18:20→23:37)
[2018-10-20] MEDS: GABAPENTIN 300 MG CAP PO SCH (21:40)
[2018-10-20] MEDS ORDERED: LORazepam 2 MG/ML INJ IVP PRN (23:55)
[2018-10-21] MEDS: metroNIDAZOLE 500 MG TAB PO SCH ×2 (04:23→15:12)
[2018-10-21] MEDS: HYDROmorphONE/DILAUDID 2 MG TAB PO PRN (04:23)
[2018-10-21 05:15] LABS: PLATELET COUNT 277 10^3/uL (150-400)
[2018-10-21] MEDS: HYDROmorphONE/DILAUDID 1 MG/ML INJ IVP PRN ×2 (07:42→08:31)
[2018-10-21] MEDS: ENOXAPARIN 40 MG/0.4 ML SYR SC SCH (08:02)
[2018-10-21] MEDS: GABAPENTIN 300 MG CAP PO SCH ×3 (08:02→21:03)
[2018-10-21] MEDS: ONDANSETRON DISINTEGRATING 4 MG TAB PO PRN (08:31)
[2018-10-21] MEDS: HYDROCODONE/APAP 10/325 TAB PO PRN ×2 (11:17→16:26)
[2018-10-21] MEDS: CIPROFLOXACIN 500 MG TAB PO SCH (11:23)
--- NOTE | 2018-10-21 12:23 | HOSPPROG ---
Hospitalist Progress Note Assessment/Plan: Acute colitis (Acute) - Presenting with 1 day of lower abdominal pain, no associated bleeding - CT A/P on admission showing descending/sigmoid colitis, ischemic vs. infectious vs. inflammatory, no evidence of pneumoperitoneum or pneumatosis, extensive diverticulosis identified, origins of SMA and ANGIE are wifely patent, no evidence of bowel obstruction - HD stable upon admission, mild distension on physical with no rebound, guarding, or significant tenderness, WBC 19.3 -> 17.8 this AM - Pt's with recent dx of C Diff, although patient does not endorse diarrhea - Will continue Cipro/Flagyl Day #2, PRN pain medication for now - Will consult GI today for further evaluation - Will advance diet to full liquid this morning - Will order C Diff/ GI PCR to further evaluate given pt's recent illness HTN - Pt presenting with BP 177/87 in setting of pain - Will continue to monitor for now, not on antihypertensive meds at home Chronic Back Pain - Continue home pain medications including [place] and Gabapentin FEN: IVF, NPO DVT PPx: Lovenox Code: FULL Dispo: Pending clinical course Subjective: Pt reports continuing abdominal discomfort this morning Objective: Vital Signs Temp Pulse Resp BP Pulse Ox 37.2 C 73 16 138/86 H 90 L 10/21/18 11:48 10/21/18 11:48 10/21/18 11:48 10/21/18 11:48 10/21/18 11:48 Laboratory Results 10/21/18 04:30 - Physical Exam Constitutional: uncomfortable Eyes: PERRL Ears, Nose, Mouth, Throat: moist mucous membranes Cardiovascular: regular rate and rhythym Respiratory: no respiratory distress Gastrointestinal: tenderness, distension, No guarding, No rebound Skin: warm Musculoskeletal: full muscle strength Neurologic: AAOx3 Psychiatric: interacting appropriately ICD10 Worksheet Patient Problems: Problems Problem Status Onset Acute colitis Acute Altered mental status Acute Anxiety Acute Depression Acute Diarrhea Acute Encephalopathy acute Acute Medication overdose Acute Medication side effect Acute Obtundation Acute Psychosis Acute Rhabdomyolysis Acute Urinary tract infection Acute
--- NOTE | 2018-10-21 13:16 | PDMN ---
Medical Necessity Medical necessity: Pt meets IP criteria per MD & MCG M-565 Inflammatory Bowel Disease; est los >2 mn for eval/tx of acute colitis w/constant 8/10 lower abdominal pain & BP of 199/83; admit for further workup/monitoring, NPO status, pain management & GI consult; comorbid advanced age, dementia, pt's w/ recent C Diff infection; per order 10/20/18
--- NOTE | 2018-10-21 14:03 | ASMTCMCOM ---
CM Note CM Note Notes: Met with pt to discuss poc. She was admitted for abdominal pain, her recently had cdiff. PT/OT recommending homecare, she would like a referral to go to [facility], and they can accept. DC Plan: Homecare/ [facility] (OT/PT) Date Signed: 10/21/2018 02:02 PM Electronically Signed By:Ellyn Clements RN
--- NOTE | 2018-10-21 15:02 | GCON ---
[f rep st] CONSULTATION GI INPATIENT CONSULTATION DATE OF CONSULTATION: 10/21/2018 I was kindly requested to see Nilam by Dr. Anshul Aranda in consultation for chief complaint of an abnormal x-ray of the GI tract. She is a 77-year-old white female who presented to the hospital with abdominal pain. It was sudden onset, in the bilateral lower quadrants. It was 10/10 in intensity initially, somewhat constant, with abdominal bloating and some nausea. Today, she is doing somewhat better, with the pain being less. About 1 week ago, she had a painful and difficult colonoscopy done in [place] , at [facility]. CT scan of the abdomen and pelvis now with IV contrast shows inflammation of the descending and sigmoid colon. She was last seen by my partner, Jalen Vivi, for an unrelated reason, constipation due to narcotics, in January of last year. Colonoscopy was done by Dr. Trinidad in 2009 for chronic diarrhea, where she received 150 mcg of fentanyl and 5 mg of Versed, which showed sigmoid diverticulosis. PAST MEDICAL HISTORY: 1. As above. 2. Constipation due to narcotics. 3. Spine fracture and back pain. 4. Hypertension. 5. Some dementia. 6. Psychiatric history, with depression. 7. Past alcohol abuse. 8. Chronic pain. 9. Status post cholecystectomy. 10. Otherwise, noncontributory. MEDICATIONS: Outpatient medications include an oral medicine for narcotic- induced constipation, but she cannot remember the name. [place]eral. Gabapentin. Inpatient medications include ciprofloxacin and Flagyl, and a full-liquid diet. ALLERGIES: Include promethazine. SOCIAL HISTORY: As above. FAMILY HISTORY: Negative for similar abdominal pain. REVIEW OF SYSTEMS: Positive pertinent review of systems as per my HPI. Otherwise, complete review of systems is negative. PHYSICAL EXAM: CONSTITUTIONAL: Nontoxic-appearing, pleasant woman. SKIN: Warm, dry. EYES: Pupils equal, round, reactive to light and accommodation. EARS, NOSE, MOUTH, THROAT: Oropharynx without masses, moist mucosa. CARDIOVASCULAR: Normal S2, normal PMI. RESPIRATORY: Lungs clear to auscultation and percussion anteriorly. GASTROINTESTINAL: Abdomen mildly distended, but without much tenderness. NEUROLOGIC: Grossly nonfocal, with cranial nerves grossly intact. PSYCHIATRIC: Orientation, insight appropriate. MUSCULOSKELETAL: Strength grossly normal throughout, normal station. LABORATORIES: Include the above. Normal basic metabolic panel. White count on admission 18,000, with a stable hematocrit of 43%. Of note, stool was sent for GI PCR pathogen and C difficile, but was not performed, as the stool is formed and normal. ASSESSMENT: Lower abdominal pain. Based on her CT findings, suspect ischemic colitis only, most likely brought on by a difficult and painful colonoscopy that she had just 1 week ago in [place]. In general, ischemic colitis will totally resolve on its own, and tends not to be recurrent. She is at a somewhat increased risk for this, with her narcotic use, hypertension, etc. PLAN: 1. Time. 2. Will discontinue her antibiotics, as this is not an infectious process. 3. No repeat colonoscopy needed at this juncture. 4. We will advance her diet to regular. I am going off service after today, so will sign off. Please call if we can be of further help in the future [phone] /[id number]/MODL MTDD
[2018-10-21] MEDS: PANTOPRAZOLE SODIUM 40 MG TAB PO SCH (15:29)
[2018-10-21] MEDS: CYCLOBENZAPRINE 10 MG TAB PO PRN (15:29)
[2018-10-22] MEDS: HYDROCODONE/APAP 10/325 TAB PO PRN ×4 (01:09→16:31)
[2018-10-22 07:15] VITALS: BP 150/76
[2018-10-22] MEDS: PANTOPRAZOLE SODIUM 40 MG TAB PO SCH (09:04)
[2018-10-22] MEDS: ENOXAPARIN 40 MG/0.4 ML SYR SC SCH (09:04)
[2018-10-22] MEDS: GABAPENTIN 300 MG CAP PO SCH ×2 (09:04→16:31)
[2018-10-22] MEDS: CYCLOBENZAPRINE 10 MG TAB PO PRN (09:09)
--- NOTE | 2018-10-22 14:34 | PDIAF ---
- Diagnosis Diagnosis: Colitis Code Status: Full Code - Medication Management Discharge Medications: electronically signed and located in the Home Medication List. - Orders Services needed: Home Senior Care Care Face to Face: I certify that this patient was under my care and that I had the required [id number] encounter meeting the encounter requirements on the discharge day. My findings support the fact that the patient is homebound as defined in Home Care Face to Face Continued: CMS Chapter 7 Medicare Benefits Manual 30.1.1 , The condition of the patient is such that there exists a normal inability to leave home and consequently, leaving home would require a considerable and taxing effort. Isolation Type: None - Follow Up Care Current Providers and Referrals: Patient,NotPresent [Primary Care Provider] - As per Instructions
--- NOTE | 2018-10-22 15:30 | ASMTLACE ---
KEON Length of stay for Answers: 2 days current admission Acuity / Level of Answers: Yes Care: Did the patient have an inpatient admission? Comorbidities - select Answers: Dementia all that apply Opioid dependence / Chronic pain # of Emergency department Answers: 1-2 visits in the last 6 months Social determinants Answers: History of substance abuse (ETOH, street drugs, prescription drugs, etc.) Mental health diagnosis (anxiety, depression, pers onality disorders, etc.) Score: 19 Date Signed: 10/22/2018 03:30 PM Electronically Signed By:YOHANNES Mast
--- NOTE | 2018-10-22 15:34 | ASDISCHSUM ---
Discharge Information Plan Status:Home with Home Health Medically Cleared to Leave:10/22/2018 Discharge Date:10/22/2018 CM D/C Disposition:Home Health Service ADT D/C Disposition: Projected Discharge Date:10/22/2018 11:00 AM Transportation at D/C:Family Discharge Delay Reason: Follow-Up Date:10/22/2018 11:00 AM Discharge Slot: Final Diagnosis: Placement Information Referral Type:*Home Health Care Services Referral ID:[id number] Provider Name:[facility] (formerly [facility]) Address 1:[address] Address 2: City:[place] Selection Factors: State:[place] Patient Contact Information Contact Name:LEONID Relationship: Address:[address] City:[facility] Phone: State/Zip Code:[place] [address] Email: Financial Information Financial Class:Medicare Primary Plan Desc:MEDICARE INPATIENT Primary Plan Number:[id number] Secondary Plan Desc:[employer]/MDR SUPPLEMENT Secondary Plan Number:[id number] Assessment Information [facility] CM Progress Note CM Note CM Note Notes: Met with pt to discuss poc. She was admitted for abdominal pain, her recently had cdiff. PT/OT recommending homecare, she would like a referral to go to [facility], and they can accept. DC Plan: Homecare/ [facility] (OT/PT) Date Signed: 10/21/2018 02:02 PM Electronically Signed By:Ellyn Clements RN LACE LACE Length of stay for Answers: 2 days current admission Acuity / Level of Answers: Yes Care: Did the patient have an inpatient admission? Comorbidities - select Answers: Dementia all that apply Opioid dependence / Chronic pain # of Emergency department Answers: 1-2 visits in the last 6 months Social determinants Answers: History of substance abuse (ETOH, street drugs, prescription drugs, etc.) Mental health diagnosis (anxiety, depression, pers onality disorders, etc.) Score: 19 Date Signed: 10/22/2018 03:30 PM Electronically Signed By:YOHANNES Mast Case Management Discharge Plan Note Case Management Discharge Discharge Order Complete? Answers: Yes Patient to Obtain Answers: via Family Medications Transportation Arranged Answers: Family/Friends Discharge Comments Notes: Pt is discharging home today with [facility]. D/C order, meds sent to [facility] via [facility]. They were also notified by phone. Date Signed: 10/22/2018 03:33 PM Electronically Signed By:YOHANNES Mast Intervention Information
--- NOTE | 2018-10-22 16:47 | PDDCSUM ---
Discharge Summary Discharge Summary: Date of Admission: 10/20/2018 Date of Discharge: 10/22/2018 Consults: GI Procedures: Abd CT FOllowup: PCP Hospital Course Problem List: Acute colitis (Acute) - Presenting with 1 day of lower abdominal pain, no associated bleeding - CT A/P on admission showing descending/sigmoid colitis, ischemic vs. infectious vs. inflammatory, no evidence of pneumoperitoneum or pneumatosis, extensive diverticulosis identified, origins of SMA and ANGIE are wifely patent, no evidence of bowel obstruction - HD stable upon admission, mild distension on physical with no rebound, guarding, or significant tenderness, WBC 19.3 -> 15 this AM - Pt's with recent dx of C Diff, although patient does not endorse diarrhea - S/p Cipro/Flagyl, recommend to d/c per GI consult - C Diff/ GI PCR sent but stool to formed to perform HTN - Pt presenting with BP 177/87 in setting of pain - Continue to monitor for now, not on antihypertensive meds at home, recommended ambulatory BP monitoring per PCP as OP Chronic Back Pain - Continue home pain medications including [place] and Gabapentin Time spent on discharge was >35 minutes with >50% of time spent on patient education and counseling.
== END 2018-10-22 17:45 | disposition home or self-care (01) | DRG 392 ==
LOC: EDUNIT# → F3E 15:47
PROVIDERS: ADMIT Internal Medicine; ATTEND Internal Medicine
DX: K52.9 Noninfective gastroenteritis and colitis, unspecified (principal); I10 Essential (primary) hypertension; Z98.1 Arthrodesis status; M54.9 Dorsalgia, unspecified
CPT/HCPCS: 96374; 97116-GP; 97161-GP; 97165-GO; 97530-GP; J1170; J1650; J2060; J2270; J2405; Q9967

== ENCOUNTER 2018-12-25 13:50 | Emergency (ER) | payer OTHER, MEDICARE | END 2018-12-25 15:46 | disposition home or self-care (01) ==